=== PATIENT | male | born 1945 ===

== ENCOUNTER 2019-09-06 15:07 | Observation (INO) | payer MEDICARE, OTHER, SELFPAY ==
[2019-09-06] VITALS (11 sets, daily range): BP systolic 99–119; BP diastolic 52–69; PULSE 94–115; RESP 10–19; TEMP 36.3–36.4; O2SAT 94–99; BMI 29.9
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
--- NOTE | 2019-09-06 15:28 | XR_ITS ---
WS: [id number] Portable AP upright chest, 09/06/2019 Clinical Data: dyspnea Comparison: Portable chest, 07/09/2019. Findings: No nodules, masses or effusions are seen. The heart is normal. The pulmonary vascularity is not increased. No pneumonia or pneumothorax is seen. The diaphragms are flattened. The aortic arch a nd descending aorta show calcification and tortuosity. XR/XR chest 1V portable [id number] Impression: Atherosclerosis and hyperinflation.
[2019-09-06 15:44] LABS: ABG PCO2 36.1 mmHg (35-45); ABG PH Result 7.48 (7.35-7.45); Alveolar-Arterial Oxygen Gradi 16.4 mmHg (5-10); Arterial Blood Gas Hematocrit 37.6 % (42-52); Base Excess ABG 3.6 mmol/L (-2.0-2.0); Blood Gas Allen Test Pos; Blood Gas Sample Site Radial, left; Blood Gas Sample Type Arterial; Carboxyhemoglobin 1.9 %THgb (0.4-20.1); HGB O2 Sat 94.1 % (95-100); Ionized Calcium Level - ABG 1.1 mmol/L (1.1-1.4); Methemoglobin 0.7 % (0.4-1.5); Oxygen Device NC; Oxygen Saturation ABG 96.6; PO2 ABG 88.4 mmHg (80.0-100.0); Potassium Level - ABG 3.3 mmol/L (3.5-5.0); Total Hemoglobin 12.3 g/dL (14-18)
[2019-09-06 15:46] LABS: Basophils % 0.2 %; Eosinophils % 0.4 %; Hematocrit 38.7 % (42.0-52.0); Hemoglobin 12.4 g/dL (11.7-16.6); Lymphocytes # 0.7 10^3/uL (0.8-4.8); Lymphocytes % 13.4 %; Mean Corpuscular Hemoglobin 30.6 pg (28.0-34.0); Mean Corpuscular Volume 95.6 fL (80-94); Monocytes # 0.6 10^3/uL (0.2-0.9); Monocytes % 11.4 %; Neutrophils # 3.7 10^3/uL (1.8-7.7); Neutrophils % 74.4 %; Nucleated Red Blood Cells % 0 %; Platelet Count 225 10^3/cmm (130-400); Red Blood Count 4.05 10^6/uL (4.1-5.3); Red Cell Distribution Width 15.3 % (12.1-15.1)
[2019-09-06] MEDS: ipratropium-albuterol 3 mL Neb 6 ML INHALATION (15:51)
[2019-09-06 16:01] LABS: Anion Gap 17.9 (5-19); Blood Urea Nitrogen 16 mg/dL (8-23); Calcium 9.1 mg/Dl (8.8-10.2); Carbon Dioxide 28 mmol/L (22-29); Chloride 93 mmol/L (98-107); Glucose 120 mg/dL (74-106); Potassium 3.9 mmol/L (3.5-5.1); Sodium 135 mmol/L (136-145)
[2019-09-06] MEDS: LORazepam 2 mg/mL INJ 1 mL 1 MG IVP (16:58)
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
--- NOTE | 2019-09-06 21:56 | PC.NURSE ---
Patient requested food, checked with nurses and doctor on diet restrictions. okay on clear liquids. Jello and an orange icy were given.
[2019-09-06] MEDS: atorvastatin 40 mg Tablet 80 MG PO (23:43)
[2019-09-06] MEDS: ipratropium-albuterol 3 mL Neb INHALATION (23:44)
[2019-09-06] MEDS: finasteride 5 mg Tablet PO (23:44)
[2019-09-06] MEDS: metoprolol tartrate 25 mg Tablet PO (23:44)
[2019-09-06] MEDS: enoxaparin 40 mg/0.4 mL Syringe SUBCUT (23:45)
[2019-09-06 23:58] LABS: Glucose Point of Care 248 mg/dL (70-110)
[2019-09-07] VITALS (19 sets, daily range): BP systolic 82–111; BP diastolic 45–62; PULSE 74–107; RESP 14–27; TEMP 36.4; O2SAT 93–99
[2019-09-07] MEDS: HYDROcodone-acetaminophen 5-325 mg Tablet 1 TAB PO ×2 (01:19→08:08)
[2019-09-07] MEDS: ipratropium-albuterol 3 mL Neb INHALATION ×3 (03:17→08:15)
[2019-09-07 05:15] LABS: Basophils % 0.2 %; Hematocrit 34.2 % (42.0-52.0); Lymphocytes # 0.5 10^3/uL (0.8-4.8); Lymphocytes % 11.6 %; Mean Corpuscular HGB Conc 32.2 g/dL (30.0-36.0); Mean Corpuscular Hemoglobin 31.3 pg (28.0-34.0); Mean Corpuscular Volume 97.4 fL (80-94); Mean Platelet Volume 8.8 fL (7.4-10.4); Monocytes # 0.1 10^3/uL (0.2-0.9); Monocytes % 3.1 %; Neutrophils # 3.9 10^3/uL (1.8-7.7); Neutrophils % 84.9 %; Nucleated Red Blood Cells % 0 %; Platelet Count 216 10^3/cmm (130-400); Red Blood Count 3.51 10^6/uL (4.1-5.3); Red Cell Distribution Width 15.1 % (12.1-15.1); White Blood Count 4.6 10^3/uL (4.0-10.0)
[2019-09-07 05:35] LABS: Alanine Aminotransferase 14 U/L (0-41); Albumin Level 2.9 g/dL (3.5-5.2); Alkaline Phosphatase 181 IU/L (40-130); Anion Gap 16.6 (5-19); Aspartate Amino Transferase 23 U/L (0-40); Blood Urea Nitrogen 15 mg/dL (8-23); Calcium 8.9 mg/Dl (8.8-10.2); Carbon Dioxide 28 mmol/L (22-29); Chloride 92 mmol/L (98-107); Glucose 105 mg/dL (74-106); Potassium 3.6 mmol/L (3.5-5.1); Sodium 133 mmol/L (136-145); Total Bilirubin 0.3 mg/dL (0.15-1.2); Total Protein 5.9 g/dL (6.6-8.7)
[2019-09-07 06:54] LABS: Glucose Point of Care 148 mg/dL (70-110)
[2019-09-07] MEDS: pantoprazole DR 40 mg Tablet PO (08:08)
[2019-09-07] MEDS: folic acid 1 mg Tablet PO (08:09)
[2019-09-07] MEDS: FUROsemide 40 mg Tablet PO (08:09)
[2019-09-07] MEDS: multivitamin therapeutic Tablet 1 TAB PO (08:09)
[2019-09-07] MEDS: clopidogrel 75 mg Tablet PO (08:09)
[2019-09-07] MEDS: thiamine 100 mg Tablet PO (08:09)
[2019-09-07] MEDS: metoprolol tartrate 25 mg Tablet PO (08:09)
[2019-09-07] MEDS: tamsulosin 0.4 mg Capsule PO (08:09)
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
--- NOTE | 2019-09-07 11:36 | PC.NURSE ---
DISCHARGE HOME WITH PT FAMILY. REVIEWED NEW MEDICATION. NO MED CHANGES. WHEELED OUT TO PRIVATE VEHICLE, WISHED WELL
== END 2019-09-07 11:35 | disposition home or self-care (01) ==
LOC: ER 18:04 → ICU 20:33
PROVIDERS: Admitting Provider Internal Medicine; Emergency Provider Family Medicine; Family Provider Family Medicine; PCP Family Medicine; Visit Provider Internal Medicine
DX: T59.811A Toxic effect of smoke, accidental (unintentional), initial encounter (principal); J70.5 Respiratory conditions due to smoke inhalation; J44.1 Chronic obstructive pulmonary disease with (acute) exacerbation; Z99.81 Dependence on supplemental oxygen; I11.0 Hypertensive heart disease with heart failure; I50.32 Chronic diastolic (congestive) heart failure; Z95.5 Presence of coronary angioplasty implant and graft; I25.10 Atherosclerotic heart disease of native coronary artery without angina pectoris; F17.210 Nicotine dependence, cigarettes, uncomplicated; N40.0 Benign prostatic hyperplasia without lower urinary tract symptoms; Z87.11 Personal history of peptic ulcer disease; E78.5 Hyperlipidemia, unspecified; E11.9 Type 2 diabetes mellitus without complications; Z82.49 Family history of ischemic heart disease and other diseases of the circulatory system; T20.04XA Burn of unspecified degree of nose (septum), initial encounter; T20.06XA Burn of unspecified degree of forehead and cheek, initial encounter; Z79.02 Long term (current) use of antithrombotics/antiplatelets
CPT/HCPCS: 12345; 36415; 36416; 36600; 71045; 80048; 80051; 80053; 82810; 82962; 83986; 85025; 87070; 87077; 87186; 87205; 94640; 96372; 96374; 96375; 96376; 99282; 99285; G0378; J1650; J1815; J2060; J2930

== ENCOUNTER 2019-09-28 18:42 | Observation (INO) | payer MEDICARE, OTHER, SELFPAY ==
[2019-09-28 18:45] VITALS: BP 116/61; PULSE 101; RESP 18; TEMP 37.1; O2SAT 91; BMI 29.1
--- NOTE | 2019-09-28 19:00 | ED_ITS ---
Entered by Leonarda Yoo, acting as scribe for HPI - General Adult General: Chief complaint: General Medical Stated complaint: swelling Time Seen by Provider: 09/28/19 18:54 Source: patient Mode of arrival: ambulatory Limitations: no limitations History of Present Illness: HPI narrative: 74 yo m came to the er pov for not feeling well. Onset was today. Pt states that he has been sob and productive cough. Family states that pt has gained some water weight. Pt states that his legs are more swollen then usual. Pt wears o2 at home and is on 2 liters. MD complaint: not feeling well. Onset (ago): day(s) (today) Radiation: non-radiation Severity: mild Associated symptoms: Reports dyspnea; Deny chest pain, confusion, palpitations or vomiting Review of Systems General: Reports: other (negative unless marked) Const: Denies: fever or chills Card: Denies: chest pain or palpitations Resp: Reports: shortness of breath, productive cough, wheezing and change in phlegm color GI: Denies: abdominal pain, vomiting or vomiting blood : Denies: flank pain, difficulty urinating or painful urination Neuro: Reports: difficulty walking; Denies: confusion or slurred speech PFSH ED PFSH: Statuses (acute, chronic, etc) shown below reflect problem list status as previously entered and may not be historically accurate Medical History BPH (benign prostatic hyperplasia) (Acute) COPD (chronic obstructive pulmonary disease) (Resolved) Coronary artery disease (Acute) Diabetes mellitus type 2 in obese (Acute) Diastolic congestive heart failure (Acute) Hyperlipidemia (Acute) Hypertension (Acute) Lymphedema (Acute) Peptic ulcer disease (Acute) Tobacco dependency (Acute) Surgical History History of carpal tunnel surgery of left wrist (Acute) History of carpal tunnel surgery of right wrist (Acute) History of coronary angioplasty with insertion of stent (Acute) Family History Other CAD (coronary artery disease) Social History Smoking and tobacco status: current every day smoker Alcohol intake: current Alcohol intake frequency: 3 or more drinks per day Alcohol type: hard liquor Physical Exam Const: COMMON NORMALS: no apparent distress and oriented x3 GENERAL APPEARANCE: disheveled; not well kempt ORIENTATION/CONSCIOUSNESS: Yes awake, Yes oriented to person, Yes oriented to place and Yes oriented to time HENMT: COMMON NORMALS: oral mucous membranes not moist FACE & SINUS: normal facial exam MOUTH: moist mucous membranes abnormal TEETH & GINGIVA: Yes abnormal tooth and associated gingiva Eye: COMMON NORMALS: PERRL and EOMs intact bilaterally PUPIL: Yes PERRL Chest: CHEST: Yes symmetrical chest wall rise Resp: AUSCULTATION: rales on the left at the base and diminished lung sounds bilateral throughout Cardio: COMMON NORMALS: regular rate and regular rhythm RATE: regular rate and tachycardic RHYTHM: regular rhythm PERIPHERAL PULSES: radial pulses present GI: COMMON NORMALS: soft to palpation INSPECTION: Yes normal to inspection AUSCULTATION: Yes normoactive bowel sounds PALPATION: Yes soft and No tender Neuro: COMMON NORMALS: oriented x3 SENSORIUM/ORIENTATION: Yes oriented to person, Yes oriented to place and Yes oriented to time Psych: APPEARANCE: No well kempt Course Consultations: Consultation #1: dina Time: 22:30 Vital Signs: Vital signs: Vital Signs Temperature 98.4 F 09/29/19 00:37 Pulse Rate 114 H 09/29/19 00:37 Respiratory Rate 24 H 09/29/19 00:37 Blood Pressure 121/67 09/29/19 00:37 Pulse Oximetry 92 09/29/19 00:37 MDM - General Adult MDM Narrative: Medical decision making narrative: 74-year-old male presents with increasing shortness of breath, productive cough, and weight gain. He is received Lasix here with decent urinary output. DuoNeb treatment seemed to help his shortness of breath. He is received Solu-Medrol. He is persistently tachycardic from 1 10-1 40. This was not responsive to metoprolol. His troponin did not change at 2 hours. There are no ST changes on his EKG. Only some cues in the anterior leads. His BNP is not overly elevated will come in for hypoxic respiratory failure with COPD exacerbation. Lab Data: Labs: Lab Results 09/28/19 09/28/19 09/28/19 Range/Units 19:37 19:42 19:42 WBC 5.3 (4.0-10.0) 10^3/ uL RBC 3.87 L (4.1-5.3) 10^6/u L Hgb 11.7 (11.7-16.6) g/dL Hct 37.0 L (42.0-52.0) % MCV 95.6 H (80-94) fL MCH 30.2 (28.0-34.0) pg MCHC 31.6 (30.0-36.0) g/dL RDW 15.5 H (12.1-15.1) % Plt Count 291 (130-400) 10^3/c mm MPV 8.4 (7.4-10.4) fL Neut % (Auto) 64.8 % Lymph % (Auto) 23.5 % Mayes % (Auto) 7.7 % Eos % (Auto) 3.4 % Baso % (Auto) 0.4 % Neut # (Auto) 3.5 (1.8-7.7) 10^3/u L Lymph # (Auto) 1.3 (0.8-4.8) 10^3/u L Mayes # (Auto) 0.4 (0.2-0.9) 10^3/u L Eos # (Auto) 0.2 (0.0-0.8) 10^3/u L Baso # (Auto) 0.0 (0.0-0.1) 10^3/u L Nucleated RBC % (a uto) 0 % Nucleated RBCs # 0.0 /100WBC Sodium 142 (136-145) mmol/L Potassium 3.0 L (3.5-5.1) mmol/L Chloride 96 L (98-107) mmol/L Carbon Dioxide 30 H (22-29) mmol/L Anion Gap 19.0 (5-19) BUN 6 L (8-23) mg/dL Creatinine 0.5 L (0.7-1.2) mg/dL Glucose 122 H (65-115) mg/dL Calcium 8.5 (8.5-10.5) mg/dL Total Bilirubin 0.2 (0.15-1.2) mg/dL AST 42 H (0-40) U/L ALT 17 (0-41) U/L Alkaline Phosphata se 197 H (40-130) IU/L Troponin T Baselin e (0-15) ng/mL Troponin T 120 Min [place] (0-15) ng/mL Delta Troponin T (0-10) ABS# NT-Pro-B Natriuret Pep 416 H (0-125) pg/mL Total Protein 5.9 L (6.6-8.7) g/dL Albumin 3.1 L (3.5-5.2) g/dL Globulin 2.8 (1.3-4.6) g/dL Ethyl Alcohol (0-10) mg/dL Influenza Type A A g Negative (Negative) POC Influenza B Ag Negative (Negative) 09/28/19 09/28/19 09/28/19 Range/Units 19:42 19:45 21:40 WBC (4.0-10.0) 10^3/ uL RBC (4.1-5.3) 10^6/u L Hgb (11.7-16.6) g/dL Hct (42.0-52.0) % MCV (80-94) fL MCH (28.0-34.0) pg MCHC (30.0-36.0) g/dL RDW (12.1-15.1) % Plt Count (130-400) 10^3/c mm MPV (7.4-10.4) fL Neut % (Auto) % Lymph % (Auto) % Mayes % (Auto) % Eos % (Auto) % Baso % (Auto) % Neut # (Auto) (1.8-7.7) 10^3/u L Lymph # (Auto) (0.8-4.8) 10^3/u L Mayes # (Auto) (0.2-0.9) 10^3/u L Eos # (Auto) (0.0-0.8) 10^3/u L Baso # (Auto) (0.0-0.1) 10^3/u L Nucleated RBC % (a uto) % Nucleated RBCs # /100WBC Sodium (136-145) mmol/L Potassium (3.5-5.1) mmol/L Chloride (98-107) mmol/L Carbon Dioxide (22-29) mmol/L Anion Gap (5-19) BUN (8-23) mg/dL Creatinine (0.7-1.2) mg/dL Glucose (65-115) mg/dL Calcium (8.5-10.5) mg/dL Total Bilirubin (0.15-1.2) mg/dL AST (0-40) U/L ALT (0-41) U/L Alkaline Phosphata se (40-130) IU/L Troponin T Baselin e 80 H (0-15) ng/mL Troponin T 120 Min [place] 74.50 H (0-15) ng/mL Delta Troponin T -5.50 L (0-10) ABS# NT-Pro-B Natriuret Pep (0-125) pg/mL Total Protein (6.6-8.7) g/dL Albumin (3.5-5.2) g/dL Globulin (1.3-4.6) g/dL Ethyl Alcohol 84 H (0-10) mg/dL Influenza Type A A g (Negative) POC Influenza B Ag (Negative) Discharge Plan Discharge Patient Disposition: Admitted As Inpatient Admit Provider: Sarkis Melgar Discharge Date/Time: 09/29/19 00:15 Coding Level of Care Code ED Reactor Service Operator for Chg Fwd Exam Problem Focused The documentation recorded by the Fredo andrews Stephanie Lyn, accurately reflects the service I personally performed and the decisions made by Ken cordero Jeremy John, DO Sep 28, 2019 18:42
--- NOTE | 2019-09-28 19:05 | XR_ITS ---
WS: [id number] ONE VIEW CHEST HISTORY: 74 years old Male with sob AP upright chest comparison 09/06/2019 FINDINGS: Lung hyperexpansion. Slight increased left lower lung zone parenchymal opacity. No pneumothorax or pl eural effusion. Heart size and pulmonary vascular markings unremarkable. Thoracic aorta atheroscleros is. No subdiaphragmatic free air. Well-visualized osseous structures intact. Spine spondylosis. XR/XR chest 1V portable [id number] IMPRESSION: 1. Suspicious for mild left basilar atelectasis and/or pneumonia. Suggest short -term follow-up PA and lateral chest in 4-6 weeks. 2. Lung hyperexpansion with diaphragm flattening, correlate for chronic emphyse ma. 3. Atherosclerosis.
--- NOTE | 2019-09-28 19:06 | ECG_ITS ---
Measurements Intervals [place] Rate: 120 P: 71 ME: 153 QRS: 76 QRSD: 69 T: 48 QT: 311 QTc: 440 SINUS TACHYCARDIA LOW QRS VOLTAGE IN PRECORDIAL LEADS [QRS DEFLECTION < 1.0 mV IN CHEST LEADS] ANTEROSEPTAL MYOCARDIAL INFARCTION , PROBABLY OLD [40+ ms Q WAVE IN V1-V4] Compared to ECG 07/09/2019 15:37:48 No significant changes Electronically Signed On 09-29-2019 0:20:51 RAILROAD SHOP INSPECTOR by Karen South M.D. [email or web address]
[2019-09-28] MEDS: FUROsemide 10 mg/mL SDV 10mL 80 MG IVP (19:22)
[2019-09-28 19:42] VITALS: PULSE 93; RESP 20; O2SAT 95
[2019-09-28] MEDS: ipratropium-albuterol 3 mL Neb INHALATION (19:42)
[2019-09-28 19:48] VITALS: PULSE 92; RESP 22; O2SAT 93
[2019-09-28 19:51] LABS: Basophils % 0.4 %; Eosinophils # 0.2 10^3/uL (0.0-0.8); Eosinophils % 3.4 %; Hemoglobin 11.7 g/dL (11.7-16.6); Lymphocytes # 1.3 10^3/uL (0.8-4.8); Lymphocytes % 23.5 %; Mean Corpuscular HGB Conc 31.6 g/dL (30.0-36.0); Mean Corpuscular Hemoglobin 30.2 pg (28.0-34.0); Mean Corpuscular Volume 95.6 fL (80-94); Mean Platelet Volume 8.4 fL (7.4-10.4); Monocytes # 0.4 10^3/uL (0.2-0.9); Monocytes % 7.7 %; Neutrophils # 3.5 10^3/uL (1.8-7.7); Neutrophils % 64.8 %; Nucleated Red Blood Cells % 0 %; Platelet Count 291 10^3/cmm (130-400); Red Blood Count 3.87 10^6/uL (4.1-5.3); Red Cell Distribution Width 15.5 % (12.1-15.1); White Blood Count 5.3 10^3/uL (4.0-10.0)
[2019-09-28 20:03] LABS: Influenza A by IFA Negative (Negative); Influenza B by IFA Negative (Negative)
[2019-09-28 20:08] VITALS: BP 106/73; PULSE 110; RESP 22; O2SAT 92
[2019-09-28 20:09] LABS: Troponin(5th) Baseline 80 ng/mL (0-15)
[2019-09-28 20:18] LABS: Alanine Aminotransferase 17 U/L (0-41); Albumin Level 3.1 g/dL (3.5-5.2); Alkaline Phosphatase 197 IU/L (40-130); Aspartate Amino Transferase 42 U/L (0-40); Blood Urea Nitrogen 6 mg/dL (8-23); Calcium 8.5 mg/dL (8.5-10.5); Carbon Dioxide 30 mmol/L (22-29); Chloride 96 mmol/L (98-107); Creatinine Clr Calc Pharmacy 79.8552; Globulin 2.8 g/dL (1.3-4.6); Glucose 122 mg/dL (65-115); NT Pro B Type Natriuretic Pept 416 pg/mL (0-125); Sodium 142 mmol/L (136-145); Total Bilirubin 0.2 mg/dL (0.15-1.2); Total Protein 5.9 g/dL (6.6-8.7)
--- NOTE | 2019-09-28 20:46 | PC.NURSE ---
Family asking about plan of care, advised family still waiting on 2 hour troponin, spoke with Dr. Rogers and will wait for rest of labs
--- NOTE | 2019-09-28 21:06 | ECG_ITS ---
Measurements Intervals [place] Rate: 94 P: 80 DE: 156 QRS: 82 QRSD: 72 T: 58 QT: 346 QTc: 434 SINUS RHYTHM LOW QRS VOLTAGE IN PRECORDIAL LEADS [QRS DEFLECTION < 1.0 mV IN CHEST LEADS] ANTEROSEPTAL MYOCARDIAL INFARCTION , PROBABLY OLD [40+ ms Q WAVE IN V1-V4] Compared to ECG 07/09/2019 15:37:48 Sinus tachycardia no longer present Myocardial infarct finding still present Electronically Signed On 09-29-2019 0:22:49 PRESTRESSED CONCRETE LABORER by Karen South M.D. [email or web address]
[2019-09-28] MEDS: potassium chloride oral liq 20 mEq/15 mL UDC 60 MEQ PO (21:39)
[2019-09-28] MEDS: metoprolol tartrate 1 mg/1 mL SDV 5 mL 2.5 MG IV (22:06)
--- NOTE | 2019-09-28 22:43 | PC.NURSE ---
Assisted patient with changing his brief, and also brought in a bedside commode for him. Patient was in a lot of discomfort when i wiped his penitential and anal area. Patient requested some type of cream or ointment for relief. I informed the doctor of this and that his diarrhea was solid but very soft looking.
[2019-09-28] MEDS: LORazepam 2 mg/mL INJ 1 mL IVP (23:11)
[2019-09-28 23:21] VITALS: BP 121/77; PULSE 114; RESP 24; O2SAT 94
[2019-09-28 23:38] LABS: Alcohol Level 84 mg/dL (0-10)
[2019-09-29] VITALS (22 sets, daily range): BP systolic 91–130; BP diastolic 48–86; PULSE 80–114; RESP 15–26; TEMP 36.5–36.9; O2SAT 90–96
--- NOTE | 2019-09-29 00:02 | PC.NURSE ---
Called report to Natalie in [facility]
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
--- NOTE | 2019-09-29 00:37 | USCV_ITS ---
Janes Pruett Age: 74 Gender: M : 1945 Exam Date: 09/29/2019 07:46 Ordering Phys: Sarkis Melgar MD Technologist: Beti Mon Exam Location: [facility] – [place] Indication: DVT HISTORY: Lower extremity swelling. PROCEDURES: Comparison: . Grayscale and duplex color Doppler venous Ultrasound performed in bilateral lower extremities. The following venous structures were evaluated: common femoral vein, profunda vein, proximal portion of the greater saphenous vein, superficial femoral vein, and the popliteal vein. In addition, the posterior tibial and peroneal trunk were evaluated. Serial compression, augmentation maneuvers, and spectral Doppler flow evaluation were performed. FINDINGS: Examination was technically limited due to body habitus. Within the bilateral lower extremity deep venous system, including the common femoral, femoral, popliteal, posterior tibial and peroneal veins, appropriate anechoic, compressible lumens are noted. Duplex color Doppler evaluation shows spontaneous cepahalad flow with appropriate augmentation waveforms. The saphenofemoral junction is/are patent. No evidence of DVT seen in any vessel visualized at this time. Diffuse calf edema noted. Mid calf veins not well seen, bilaterally. CONCLUSIONS Bilateral calf mild edema and/or cellulitis. No evidence of bilateral lower extremity occlusive or obvious non occlusive DVT. Pop Green MD (Electronically Signed) Final Date: 29 September 2019 09:15 S
--- NOTE | 2019-09-29 00:43 | US_ITS ---
WS: [id number] ABDOMINAL ULTRASOUND HISTORY: 74 years old Male with renal lesion left kidney, liver lesion, cirrhosis COMPARISON: CT abdomen 07/09/2019 TECHNIQUE: Grayscale and Doppler ultrasound examination of the abdomen. FINDINGS: Pancreas: Obscured by shadowing bowel gas. Abdominal aorta and IVC: Included portions not dilated. Liver: Liver measures 18.7 cm in length. Mildly enlarged. Liver mildly echogenic. No intrahepatic oj e duct dilatation seen. Previously described lesion the left hepatic lobe is not seen on current exam . No hepatic bile duct dilatation seen. Gallbladder: Gallbladder wall thickness measures 2.6 mm. Gallbladder sludge. No stone, wall thickenin g, pericholecystic fluid, or hydrops. Left kidney: Left kidney measures 11.1 cm x 4.5 cm x 6.0 cm. Left kidney cortex measures 1.8 cm. Prev iously noted left kidney upper pole cyst without significant change measuring 1.7 cm. No solid or oth er cystic mass seen. No hydronephrosis or shadowing calculus. Right kidney: Right kidney measures 10.4 cm x 5.4 cm x 6.3 cm. Right kidney cortex measures 1.5 cm. R ight mid kidney exophytic cyst unchanged. No solid or additional cystic mass seen. No hydronephrosis or shadowing calculus identified. Spleen: Spleen measures 10.6 cm. Splenic calcified granulomas. No abdominal free fluid or fluid collection seen. US/US abdomen complete* [id number] IMPRESSION: 1. Nonvisualization of previous left hepatic lobe lesion. Consider follow-up CT abdomen liver protocol or MRI liver without and with contrast for further eval uation 2. Mild hepatomegaly and fatty liver versus diffuse hepatocellular disease. 3. Unchanged bilateral renal cysts. 4. Gallbladder sludge without evidence of stone or acute cholecystitis. 5. Splenic calcified glomus.
--- NOTE | 2019-09-29 01:06 | ECG_ITS ---
Measurements Intervals [place] Rate: 114 P: 71 DC: 137 QRS: 87 QRSD: 79 T: 68 QT: 330 QTc: 455 SINUS TACHYCARDIA LOW QRS VOLTAGE IN PRECORDIAL LEADS [QRS DEFLECTION < 1.0 mV IN CHEST LEADS] ABNORMAL RHYTHM ECG Compared to ECG 09/28/2019 21:46:18 Myocardial infarct finding no longer present Electronically Signed On 09-29-2019 22:24:56 DEPARTMENT HELPER by Karen South M.D. [email or web address]
[2019-09-29 01:21] LABS: Magnesium 1.3 mg/dL (1.7-2.3); Phosphorus 2.2 mg/dL (2.5-4.5)
[2019-09-29] MEDS: HYDROcodone-acetaminophen 5-325 mg Tablet 1 TAB PO ×2 (01:27→10:56)
--- NOTE | 2019-09-29 01:27 | PC.NURSE ---
Patient is sitting up in the bed, patient brought from the Emergency room via stretcher. Patient is alert and oriented to person, time, place, and situation, Hospital teaching provided regarding the room and notifying nursing for any needs. Full admission assessment completed per flow sheet. Patient has bilateral extremities, with hemosiderin staining, with small fissure areas, patient has pitting edema 4+ to bilateral extremities. Pedal pulses present, patient states, they only hurt if I leave them dangle from bed or chair in a sitting position Instructed patient that we need a urine specimen when he voids. Patient verbalizes understanding and states I had some [employer] at 0930 09/28/19 was the last time, drinking in the morning gets me going, but I think I been drinking too much Patient's resp even and non-labored, will continue to monitor patient. Call light within reach. Care continued.
[2019-09-29] MEDS: enoxaparin 40 mg/0.4 mL Syringe SUBCUT (01:28)
[2019-09-29] MEDS: doxycycline 100 mg Tablet PO (01:28)
[2019-09-29] MEDS: folic acid 1 MG, multivitamin inj 10 ML, thiamine 100 MG in sodium chloride 0.9% 1,000 ML 252.8 MG IV (01:28)
[2019-09-29 02:24] LABS: Add Urine Microscopic? NO
[2019-09-29 02:44] LABS: Bilirubin Urine Neg (NEGATIVE); Blood Urine Neg (Negative); Glucose Urine UA Norm (Normal); Ketones Urine Negative (Negative); Leukocyte Esterase Urine Negative (Negative); Nitrate Urine Negative (Negative); Protein Urine Neg (Negative); Specific Gravity, Urine 1.015 (1.005-1.030); Urine Appearance Clear (CLEAR); Urine Color Yellow (Yellow); Urobilinogen Urine Norm (Negative); pH Urine 5 (5-7)
[2019-09-29 02:55] LABS: Amphetamines Screen Urine Negative (Negative); Barbiturates Screen Urine Negative (Negative); Benzodiazepines Screen Urine Negative (Negative); Cocaine Screen Urine Negative (Negative); PCP Screen Urine Negative (Negative); THC Screen Urine Negative (Negative)
--- NOTE | 2019-09-29 04:39 | PC.NURSE ---
Patient ambulated 50 ft with walker in the hallway with nursing staff. patient tolerated well.
[2019-09-29] MEDS: ipratropium-albuterol 3 mL Neb INHALATION ×6 (04:42→23:54)
[2019-09-29 05:13] LABS: Basophils % 0.1 %; Hematocrit 38.5 % (42.0-52.0); Hemoglobin 12.5 g/dL (11.7-16.6); Lymphocytes # 0.6 10^3/uL (0.8-4.8); Mean Corpuscular HGB Conc 32.5 g/dL (30.0-36.0); Mean Corpuscular Hemoglobin 31.2 pg (28.0-34.0); Mean Platelet Volume 8.9 fL (7.4-10.4); Monocytes # 0.1 10^3/uL (0.2-0.9); Monocytes % 1.1 %; Neutrophils # 7.4 10^3/uL (1.8-7.7); Neutrophils % 91.6 %; Nucleated Red Blood Cells % 0 %; Platelet Count 304 10^3/cmm (130-400); Red Blood Count 4.01 10^6/uL (4.1-5.3); Red Cell Distribution Width 15.2 % (12.1-15.1)
[2019-09-29 05:38] LABS: Alanine Aminotransferase 16 U/L (0-41); Albumin Level 2.6 g/dL (3.5-5.2); Alkaline Phosphatase 183 IU/L (40-130); Anion Gap 19.9 (5-19); Aspartate Amino Transferase 39 U/L (0-40); Blood Urea Nitrogen 6 mg/dL (8-23); Calcium 8.4 mg/dL (8.5-10.5); Carbon Dioxide 28 mmol/L (22-29); Chloride 92 mmol/L (98-107); Creatinine Clr Calc Pharmacy 79.8552; Globulin 3.2 g/dL (1.3-4.6); Glucose 193 mg/dL (65-115); Potassium 3.9 mmol/L (3.5-5.1); Sodium 136 mmol/L (136-145); Total Bilirubin 0.5 mg/dL (0.15-1.2); Total Protein 5.8 g/dL (6.6-8.7)
[2019-09-29 05:39] LABS: Chol HDL Ratio 2.75 mg/dL (1.0-5.00); Cholesterol 157 mg/dL (0-200); HDL Cholesterol 57 mg/dL (60-100); LDL Cholesterol Calculated 83 mg/dL (50-129); LDL HDL Ratio 1.46 RATIO (0.00-3.22); Phosphorus 2.4 mg/dL (2.5-4.5); Triglycerides 84 mg/dL (0-150)
[2019-09-29 05:51] LABS: Estmated Average Glucose 140; Hemoglobin A1C 6.5 % (4.0-6.0)
[2019-09-29] MEDS: acetaminophen 325 mg Tablet 650 MG PO (06:15)
[2019-09-29 06:25] LABS: Glucose Point of Care 211 mg/dL (70-110)
--- NOTE | 2019-09-29 08:16 | USCV_ITS ---
Janes Pruett Age: 74 Gender: M : 1945 Exam Date: 09/29/2019 09:59 Ordering Phys: Roney Lyman MD Technologist: Antony Herron Exam Location: [facility] [place] Indication: HX OF CAD BP: 105 / 86 HR: 91 Rhythm: Sinus Technical Quality: Adequate MEASUREMENTS (Male / Female) Normal Values 2D ECHO LV Diastolic Diameter PLAX 3.9 cm 4.2 - 5.9 / 3.9 - 5.3 cm LV Systolic Diameter PLAX 2.7 cm IVS Diastolic Thickness 1.1 cm 0.6 - 1.0 / 0.6 - 0.9 cm IVS Systolic Thickness 1.7 cm LVPW Diastolic Thickness 1.2 cm 0.6 - 1.0 / 0.6 - 0.9 cm LVPW Systolic Thickness 1.4 cm LVOT Diameter 2.4 cm LV Ejection Fraction 2D Teich 59.8 % LV Ejection Fraction MOD 2C 70.0 % LV Ejection Fraction 2C AL 69.9 % LA Diameter 4.3 cm LA Width 3.9 cm LA Height 4.6 cm RA Width 4.1 cm RA Height 4.1 cm M-MODE LV Diastolic Diameter MM 4.8 cm 4.2 - 5.9 / 3.9 - 5.3 cm LV Systolic Diameter MM 2.8 cm LV Ejection Fraction MM Teich 73.4 % IVS Diastolic Thickness MM 0.9 cm 0.6 - 1.0 / 0.6 - 0.9 cm IVS Systolic Thickness MM 1.6 cm LVPW Diastolic Thickness MM 1.2 cm 0.6 - 1.0 / 0.6 - 0.9 cm LVPW Systolic Thickness MM 2.2 cm RV Diastolic Diameter MM 2.1 cm Aortic Annulus Diameter 3.2 cm LA Ao Ratio MM 1.4 MV E Point Septal Separation 0.7 cm DOPPLER AV Peak Velocity 110.0 cm/s LVOT Peak Velocity 85.0 cm/s AV Area Cont Eq vti 3.3 cm squared AV Area Cont Eq pk 3.4 cm squared MV Area PHT 5.0 cm squared Mitral E to A Ratio 0.9 MV E' Velocity 11.0 cm/s Mitral E to MV E' Ratio 8.1 Mitral E to LV E' Lateral Ratio 7.8 Mitral E to LV E' Septal Ratio 8.6 TR Peak Velocity 197.0 cm/s TR Peak Gradient 15.5 mmHg FINDINGS Left Ventricle Normal left ventricular cavity size. Normal left ventricular systolic function. No regional wall motion abnormalities. Left ventricular ejection fraction is estimated at 65 %. Grade I/IV diastolic dysfunction (abnormal relaxation filling pattern), normal to mildly elevated filling pressures. Right Ventricle The right ventricle is normal in size and function. RVSP could not be calculated due to incomplete tricuspid regurgitation velocity profile. Right Atrium The right atrium is normal in size. Left Atrium The left atrium is normal in size. Mitral Valve Structurally normal mitral valve without significant stenosis or prolapse. There is no mitral regurgitation. Aortic Valve Mild aortic valve calcification. No aortic valve stenosis. Trace aortic valve regurgitation. Tricuspid Valve Structurally normal tricuspid valve without significant stenosis or regurgitation. Pulmonary artery systolic pressure is normal. Pulmonic Valve Structurally normal pulmonic valve without significant stenosis. There is no pulmonic regurgitation. Pericardium Normal pericardium without effusion. Aorta Normal ascending aorta dimension. CONCLUSIONS 1-Normal left ventricular cavity size. Normal left ventricular systolic function. No regional wall motion abnormalities. Left ventricular ejection fraction is estimated at 65 %. Grade I/IV diastolic dysfunction (abnormal relaxation filling pattern), normal to mildly elevated filling pressures. 2-There is no pericardial effusion. 3-The right ventricle is normal in size and function. RVSP could not be calculated due to incomplete tricuspid regurgitation velocity profile. 4-No significant valve abnormalities. 5-Right atrial pressure is around 5 mm of mercury. 6-No significant change since the prior echocardiogram study of 09/19/2018. Karen South MD (Electronically Signed) Final Date: 29 September 2019 16:07 S
[2019-09-29] MEDS: tamsulosin 0.4 mg Capsule PO (08:34)
[2019-09-29] MEDS: finasteride 5 mg Tablet PO (08:35)
[2019-09-29] MEDS: multivitamin therapeutic Tablet 1 TAB PO (08:35)
[2019-09-29] MEDS: gabapentin 300 mg Capsule PO ×3 (08:35→21:04)
[2019-09-29] MEDS: atorvastatin 40 mg Tablet 80 MG PO (08:35)
[2019-09-29] MEDS: folic acid 1 mg Tablet PO (08:35)
[2019-09-29] MEDS: thiamine 100 mg Tablet PO (08:35)
[2019-09-29] MEDS: metoprolol tartrate 25 mg Tablet PO ×2 (08:35→17:34)
[2019-09-29] MEDS: pantoprazole DR 40 mg Tablet 20 MG PO (08:36)
[2019-09-29] MEDS: clopidogrel 75 mg Tablet PO (08:36)
[2019-09-29] MEDS: FUROsemide 10 mg/mL SDV 4mL 40 MG IVP (08:46)
[2019-09-29 11:14] LABS: Glucose Point of Care 199 mg/dL (70-110)
[2019-09-29 11:14] LABS: Glucose Point of Care 228 mg/dL (70-110)
[2019-09-29 11:40] LABS: D Dimer 2.03 ug/mIFEU (0-0.59)
[2019-09-29 12:23] LABS: Procalcitonin 0.19 ng/mL (0-0.5)
[2019-09-29 12:34] LABS: Iron 60 ug/dL (59-158); Percent Saturation 35.5 % (20-50); Total Iron Binding Capacity 169 mcg/dl; Unsaturated Iron Binding 109 ug/dL (112-347)
--- NOTE | 2019-09-29 14:17 | PC.CHAP ---
Pastoral Care Encounter/Spiritual Assessment Type of Contact [] Declined public affairs officer visit [] Patient/Family/Request visit [] Outpatient visit [] Follow-up visit [] Physician referral [] Code/Alert [x] Routine visit [] Staff referral [] Actively dying [] Patient sleeping [x] Family support [] [] Out of room [] Palliative care [] [] Receiving care in room [] Pre-surgical visit [] Trauma [] Long length of stay [] ICU visit [] Other: Relational/Emotional Strength [] Patient feels connected with others/family/visitors/staff [] Distress [] Loneliness/isolation [] Abandonment Spirituality of Patient [] Person of Hazel [] Attends Hindu of their Hazel [] Believes in Prayer [] Reads Bible or Moravian materials [] There are Spiritual issues to be addressed Microeconomics Professor Interventions [x] Prayer [] Active listening [] Non-anxious presence [] Spiritual/emotional support [] Crisis/trauma care [] Spiritual counseling [] Bereavement support [] Provided bereavement packet [] Provided Bible/devotional materials [] Provided toy/stuffed animal, coloring book to patient or family member [] Provided Communion [] Anointing/[place] [] Salvation [x Completed spiritual assessment [] Other: Impact on Illness or Injury [] Angry [] Fearful [] Anxious [] Often cries [] Exhaustion [] Unable to work [] Unable to attend temple [] Unable to walk/stand [] Unable to read [] Unable to drive [] Unable to eat/drink [] Unable to sleep [] Unable to be with family [] Patient intubated [] Other: Summary and children of Patient present. Patient accepted prayer as well did the entire family. As stated not a man of hazel, but would appreciate a prayer. Time spent with patient
[2019-09-29] MEDS: LORazepam 2 mg Tablet PO (14:31)
--- NOTE | 2019-09-29 15:40 | PC.RESP ---
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
[2019-09-29 16:51] LABS: Glucose Point of Care 242 mg/dL (70-110)
[2019-09-29 20:31] LABS: Glucose Point of Care 195 mg/dL (70-110)
[2019-09-30] VITALS (12 sets, daily range): BP systolic 91–108; BP diastolic 41–61; PULSE 78–105; RESP 18–22; TEMP 36.4–36.8; O2SAT 90–94
[2019-09-30] MEDS: HYDROcodone-acetaminophen 5-325 mg Tablet 1 TAB PO (00:27)
[2019-09-30] MEDS: enoxaparin 40 mg/0.4 mL Syringe SUBCUT (00:28)
[2019-09-30] MEDS: ipratropium-albuterol 3 mL Neb INHALATION ×3 (03:49→12:01)
[2019-09-30 05:42] LABS: Phosphorus 2.6 mg/dL (2.5-4.5)
[2019-09-30 06:20] LABS: Glucose Point of Care 198 mg/dL (70-110)
[2019-09-30] MEDS: tamsulosin 0.4 mg Capsule PO (08:37)
[2019-09-30] MEDS: gabapentin 300 mg Capsule PO (08:37)
[2019-09-30] MEDS: finasteride 5 mg Tablet PO (08:37)
[2019-09-30] MEDS: multivitamin therapeutic Tablet 1 TAB PO (08:37)
[2019-09-30] MEDS: folic acid 1 mg Tablet PO (08:37)
[2019-09-30] MEDS: metoprolol tartrate 25 mg Tablet PO (08:38)
[2019-09-30] MEDS: clopidogrel 75 mg Tablet PO (08:38)
[2019-09-30] MEDS: thiamine 100 mg Tablet PO (08:38)
[2019-09-30] MEDS: pantoprazole DR 40 mg Tablet 20 MG PO (08:38)
[2019-09-30] MEDS: atorvastatin 40 mg Tablet 80 MG PO (08:38)
[2019-09-30] MEDS: FUROsemide 10 mg/mL SDV 4mL 40 MG IVP (08:39)
--- NOTE | 2019-09-30 08:52 | PM.PN ---
Subjective Subjective: Interval history: Admitted overnight. H&P and labs noted. Doing well. States doing better and wants to go home. Medications: Medication Review Details: Albuterol inhaler Lipitor 80 mg once daily Protonix 80 mg once daily Plavix 75 mg once daily Tamsulosin 0.4 mg daily Finasteride 5 mg p.o. daily Lasix 40 mg p.o. daily Potassium chloride 10 mEq p.o. twice daily Gabapentin 300 mg p.o. 3 times daily Metoprolol 25 p.o. twice daily [place] 5/325 every 8 as needed Vitals/I&O/Wt Last Vital Signs Temp 97.5 F L 09/30/19 08:00 Pulse 93 09/30/19 08:00 Resp 19 H 09/30/19 08:00 BP 108/61 09/30/19 08:00 Pulse Ox 90 09/30/19 07:23 09/29/19 09/30/19 09/30/19 22:59 06:59 14:59 Intake Total 240 / 720 100 / 820 240 / 240 Balance 240 / 720 100 / 820 240 / 240 Weight last 48 hrs Weight 79.379 kg Physical Exam Narrative: EXAM NARRATIVE: General: No acute distress, AO x3 HEENT: PERRLA, pupils bilaterally equal and reactive Chest: Normal vesicular breath sounds, no added sounds, equal good air entry bilaterally CVS: S1-S2 regular, no murmurs, no tachycardia, no gallops, no rubs Abdomen: Soft, nontender, no organomegaly, bowel sounds present Neuro: No focal deficits, no facial deformity, AO x3, power 5/5 in all limbs, intentional tremors present EXt:B/l swelling present Data : 09/29/19 04:47 09/29/19 04:47 Micro: Microbiology 09/28/19 19:23 Gram Stain - Final Sputum - Expectorated Sputum Sputum Culture - Preliminary 09/28/19 19:48 Blood Culture - Preliminary Blood NEGATIVE TO DATE 09/28/19 19:42 Blood Culture - Preliminary Blood NEGATIVE TO DATE 09/29/19 09:35 Occult Blood (FIT) - Final Stool A&P Assessment and plan (1) Acute and chronic respiratory failure with hypoxia: -Secondary to COPD exacerbation Plan: -Solu-Medrol 40 mg every 8 hours -Doxycycline -DuoNeb -Oxygen therapy -Continue home Lasix Status: Acute Code(s): J96.21 - Acute and chronic respiratory failure with hypoxia (2) Alcohol withdrawal: -Last alcohol drink was at 9 AM -Likely patient sinus tachycardia, bilateral upper extremity tremors, tongue tremors, is related to alcohol withdrawal -Blood alcohol level 84 -[facility] protocol -Telemetry monitoring Status: Acute Code(s): F10.239 - Alcohol dependence with withdrawal, unspecified (3) Diastolic congestive heart failure: -Patient's echocardiogram on August 2018 showed left ventricular ejection fraction of 60%, grade 1 diastolic dysfunction -Patient does not seem clinically or fluid overloaded, Bnp is 416 -Did receive Lasix in the ER 80 -Change lasix to IV. -Monitor creatinine Status: Acute Code(s): I50.30 - Unspecified diastolic (congestive) heart failure (4) Edema of both upper extremities: -Interestingly patient has edema of bilateral upper extremities -No palpable bilateral axillary lymph nodes, no supraclavicular lymph nodes -CT angiogram on 07/09 of the chest showed Lungs: Severe emphysematous changes are noted. -CT of the abdomen on 07/10/2019 showed 1. Diffuse wall thickening of the colon and distal ileum. This moderate wall thickening is compatible with inflammation or infection. No abscess or free air. 2. 1 cm indeterminate hypodense lesion upper pole LEFT kidney. Ultrasound is recommended for further characterization. 3. Unchanged size of the indeterminate 18 mm lesion LEFT hepatic lobe with central hyper enhancement and peripheral hypoenhancement. Elective MRI may be helpful for further characterization. -Patient will likely require a work-up for possibly malignancy as outpatient -We will do a liver ultrasound, and a kidney ultrasound, Hemoccult Status: Acute Code(s): R60.9 - Edema, unspecified (5) Diabetes mellitus type 2 in obese: Low-dose sliding scale Status: Acute Code(s): E11.69 - Type 2 diabetes mellitus with other specified complication; E66.9 - Obesity, unspecified (6) Peptic ulcer disease: Status: Acute Code(s): K27.9 - Peptic ulcer, site unspecified, unspecified as acute or chronic, without hemorrhage or perforation (7) Hyperlipidemia: Status: Acute Code(s): E78.5 - Hyperlipidemia, unspecified (8) Coronary artery disease: Status post stenting x4, stress in 01/07/2018 was low probability of CAD No active chest pain Baseline troponin 80, 120 minutes 74.5, delta 5.5 EKG shows sinus tachycardia Likely type II NSTEMI from's supply demand ischemia Plan: -Continue to monitor troponins, serial EKGs, telemetry monitoring Status: Acute Code(s): I25.10 - Atherosclerotic heart disease of [place] coronary artery without angina pectoris (9) Lymphedema: -Bilateral lower extremity lymphedema -Patient states that today is a good day -Get lymphedema wraps -We will do bilateral extremity ultrasound to rule out DVT Status: Acute Code(s): I89.0 - Lymphedema, not elsewhere classified (10) Sinus tachycardia: -Heart rates as high as 140 -EKG has no significant ST-T wave changes -Troponins are elevated secondary type II NSTEMI from supply demand ischemia -Patient's alcohol level is 84, is withdrawing from alcohol -Likely sinus tachycardia is from alcohol withdrawal -If patient sinus tachycardia does not resolve, can consider CT angiogram to rule out pulmonary embolism, although patient had a negative CT [place] on 07/10/2019 Status: Acute Code(s): R00.0 - Tachycardia, unspecified Attestations Medical Necessity Statement*: Needs continued hospitalisation for for COPD exacerbation Time Spent in Patient Care: 16 - 35 minutes Coding Level of Care Code Acute Back Feeder [employer] Layup Line for [facility] Fwd Diagnoses Acute and chronic respiratory failure with hypoxia J96.21 Alcohol withdrawal F10.239 Diastolic congestive heart failure I50.30 Edema of both upper extremities R60.9 Diabetes mellitus type 2 in obese E11.69; E66.9 Peptic ulcer disease K27.9 Hyperlipidemia E78.5 Coronary artery disease I25.10 Lymphedema I89.0 Sinus tachycardia R00.0
[2019-09-30] MEDS: magnesium sulfate premix 4 GM/100 ML PREMIX IV (09:25)
[2019-09-30 11:32] LABS: Glucose Point of Care 173 mg/dL (70-110)
--- NOTE | 2019-09-30 11:39 | SUR.PREOP ---
Patient given information on Smoking Cessation and Pulmonary Rehab.
--- NOTE | 2019-09-30 12:24 | P.DS_ITS ---
Discharge Providers Date of Admission: 09/28/19 22:32 Date of Discharge: September 30, 2019 Attending Provider at Admission: Sarkis Melgar MD Attending Provider at Discharge: Ronnie Martini MD Primary Care Provider: Hany Manzanares MD Diagnoses at Discharge Discharge Diagnosis (1) Acute and chronic respiratory failure with hypoxia: Status: Acute Problem details: Improved (2) Alcohol withdrawal: Status: Acute Problem details: No significant withdrawal currently (3) Diastolic congestive heart failure: Status: Acute Problem details: Compensated currently (4) Edema of both upper extremities: Status: Acute Problem details: Improved (5) Diabetes mellitus type 2 in obese: Status: Acute Problem details: Stable (6) Peptic ulcer disease: Status: Acute Problem details: No complaints (7) Hyperlipidemia: Status: Acute (8) Coronary artery disease: Status: Acute (9) Lymphedema: Status: Acute (10) Sinus tachycardia: Status: Acute Reason for Visit Reason for Visit: Reason For Visit: acute copd exacerbation Hospital Course Hospital Course: Janes presented to the hospital at the direction of his home health nurse who reported his legs were more swollen than usual, and he was short of breath. Patient reported his breathing was about the baseline. He was admitted to the hospital and diagnosed with a COPD exacerbation, and acute diastolic heart failure. There was concern of alcohol withdrawal as well. He received IV diuresis, prednisone, doxycycline. By the end of this hospital stay he was much improved. Magnesium was still significantly low which I supplemented. Patient refused any further hospital stay, reporting he was going home. Son confirmed this. Discharge was arranged. He will need to follow-up as an outpatient for an abnormality on CT of abdomen demonstrating a 1 cm lesion left kidney, indeterminate as well as left hepatic lobe. Physical Exam Narrative: EXAM NARRATIVE: General exam no apparent distress Cardiovascular regular rate and rhythm without murmur Lungs clear Abdomen is soft with positive bowel sounds Extremities 1+ edema, diminished breath sounds bilaterally Discharge Data Data Completed and Pending: Completed Studies During Hospitalization Category Date Time Status XR chest 1V rojelio ble [id number] Urgent Exams 09/28/19 19:05 Completed CV echo complete* [id number] Routine Ultrasound 09/29/19 08:16 [place] [id number] Routin e Ultrasound 09/29/19 00:37 Completed US abdomen comple te* [id number] Routine Ultrasound 09/29/19 00:43 Completed Pending at discharge Category Date Time Status Blood Culture Sta t Lab 09/28/19 19:48 Results Magnesium AM LABS Lab 10/01/19 04:00 Ordered Phosphorus AM LAB S Lab 10/01/19 04:00 Ordered Sputum Culture an d Gram Stain Stat Lab 09/28/19 19:23 Results Labs from last 24 hours 09/30/19 09/30/19 09/30/19 10:54 06:04 04:27 POC Glucose 173 198 Phosphorus 2.6 Magnesium 1.0 L Iron TIBC % Saturation Unsat Iron Binding 09/29/19 09/29/19 09/29/19 20:25 16:49 04:47 POC Glucose 195 242 Phosphorus Magnesium Iron 60 TIBC 169 % Saturation 35.5 Unsat Iron Binding 109 L Vitals: Last Vital Signs Temp 98.0 F 09/30/19 10:53 Pulse 100 09/30/19 12:11 Resp 18 09/30/19 12:05 BP 98/52 09/30/19 10:53 Pulse Ox 94 09/30/19 12:05 Discharge Plan Discharge Patient Disposition: Home, Self-Care Condition: Stable Prescriptions: New thiamine mononitrate (vit B1) [Vitamin B-1 (mononitrate)] 100 mg Tablet 100 mg PO DAILY Qty: 30 RF: 0 doxycycline hyclate 100 mg capsule 100 mg PO BID 10 Days Qty: 20 RF: 0 prednisone 20 mg tablet 40 mg PO DAILY 5 Days Qty: 10 RF: 0 magnesium oxide 400 mg magnesium capsule 400 mg PO DAILY Qty: 30 RF: 0 Continued albuterol sulfate 90 mcg/actuation HFA aerosol inhaler 1 puff INHALATION QID RF: 0 atorvastatin [Lipitor] 80 mg tablet 80 mg PO DAILY RF: 0 pantoprazole 20 mg Tablet,Delayed Release (Dr/Ec) 20 mg PO DAILY RF: 0 Plavix 75 mg Tablet 75 mg PO DAILY RF: 0 tamsulosin 0.4 mg Capsule 0.4 mg PO DAILY RF: 0 finasteride 5 mg Tablet 5 mg PO DAILY RF: 0 Lasix 40 mg Tablet 40 mg PO DAILY RF: 0 potassium chloride 10 mEq Tablet Extended Release 10 meq PO BID RF: 0 gabapentin 300 mg Capsule 300 mg PO TID RF: 0 metoprolol tartrate 25 mg Tablet 25 mg PO BID RF: 0 Discontinued prednisone 20 mg tablet 40 mg PO DAILY Qty: 6 RF: 0 Discharge Orders: Discharge Order (Routine); Ordered 09/30/19 Ordered By: Ronnie Martini Referrals: Hany Manzanares MD [Primary Care Provider] - 4-7 days Discharge Diet: Cardiac and Diabetic Discharge Activity: Resume usual activity Activity Restrictions/Additional Instructions: Resume home oxygen at 3 L. Stop drinking. Take all medicine as prescribed. Discharge Attestations Time Spent in Discharge Care*: greater than 30 min Quality Metrics Clinical Quality Measures During this hospital stay, did patient experience: None Coding Level of Care Code Acute Roll On Worker for g Fwd Diagnoses Acute and chronic respiratory failure with hypoxia J96.21 Alcohol withdrawal F10.239 Diastolic congestive heart failure I50.30 Edema of both upper extremities R60.9 Diabetes mellitus type 2 in obese E11.69; E66.9 Peptic ulcer disease K27.9 Hyperlipidemia E78.5 Coronary artery disease I25.10 Lymphedema I89.0 Sinus tachycardia R00.0
--- NOTE | 2019-09-30 14:06 | PC.NURSE ---
patient discharged home at this time patient given discharge instructions given to patient and son. patient and son educated on s/s to be aware of and the stoplight system son and patient verbalized understanding. IV discontinued cath intact min bleeding noted. patient assisted to wheelchair and accompanied by staff to private vehicle
--- NOTE | 2019-10-07 06:24 | PC.SOCIAL ---
Reviewed micro results with Dr Martini. Per Dr Martini on 10/04/2019 nothing further needed.
== END 2019-09-30 14:05 | disposition home or self-care (01) ==
LOC: ER 19:34 → MEDSURG 22:54 → CSU 09-29 04:56
PROVIDERS: Student in an Organized Health Care Education/Training Program; Admitting Provider Family Medicine; Emergency Provider Emergency Medicine; Family Provider Family Medicine; PCP Family Medicine; Visit Provider Internal Medicine
DX: J96.21 Acute and chronic respiratory failure with hypoxia (principal); F10.239 Alcohol dependence with withdrawal, unspecified; Y90.4 Blood alcohol level of 80-99 mg/100 ml; M79.89 Other specified soft tissue disorders; E11.69 Type 2 diabetes mellitus with other specified complication; K27.9 Peptic ulcer, site unspecified, unspecified as acute or chronic, without hemorrhage or perforation; E78.5 Hyperlipidemia, unspecified; I11.0 Hypertensive heart disease with heart failure; I50.30 Unspecified diastolic (congestive) heart failure; I25.10 Atherosclerotic heart disease of native coronary artery without angina pectoris; I89.0 Lymphedema, not elsewhere classified; R00.0 Tachycardia, unspecified; Z79.02 Long term (current) use of antithrombotics/antiplatelets; Z79.891 Long term (current) use of opiate analgesic; N40.0 Benign prostatic hyperplasia without lower urinary tract symptoms; Z82.49 Family history of ischemic heart disease and other diseases of the circulatory system; F17.210 Nicotine dependence, cigarettes, uncomplicated
CPT/HCPCS: 12345; 36415; 36416; 71045; 76700; 80053; 80061; 80307; 81003; 82274; 82962; 83036; 83540; 83550; 83735; 83880; 84100; 84145; 84484; 85025; 85378; 87040; 87070; 87205; 87804; 93005; 93306; 93970; 94640; 96372; 96374; 96375; 97110; 97116; 97161; 97165; 97530; 99283; 99285; G0378; J1650; J1815; J1940; J2060; J2930; J3411; J3475; J3490; J7030

== ENCOUNTER 2021-05-18 09:15 | Inpatient (IN) | payer MEDICARE, SELFPAY ==
[2021-05-18] VITALS (56 sets, daily range): BP systolic 95–127; BP diastolic 33–66; PULSE 86–111; RESP 1–27; TEMP 36.8–37.4; O2SAT 93–99; BMI 33.3
--- NOTE | 2021-05-18 09:23 | ECG_ITS ---
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
--- NOTE | 2021-05-18 09:23 | XR_ITS ---
WS: [id number] Exam: XR chest 1V portable [id number] Date/Time of Exam: 05/18/2021 9:25 AM Reason For Exam: dyspnea/cough Comparison 09/28/2019. The lungs are hyperinflated. No consolidating infiltrates are seen. Plaque atelectasis in the lower l tod zones. Unremarkable cardiomediastinal silhouette. Ill-defined nodular infiltrate superimpose the bilateral lower lung zones and are most likely nipple shadows. Regional bony elements are intact. Sca ttered calcified granulomas. XR/XR chest 1V portable [id number] IMPRESSION: 1. Ill-defined nodular densities superimposing the bilateral lower lung zones w hich are most likely nipple shadows. Repeat exam with metallic nipple markers i n place could be performed for confirmation. 2. No acute infiltrates or pneumothorax. 3. Pulmonary hyperinflation which may indicate obstructive lung disease.
--- NOTE | 2021-05-18 09:24 | ED_ITS ---
HPI - Chest Pain General: Chief Complaint: Chest Pain Stated Complaint: CHEST PAIN Time Seen by Provider: 05/18/21 09:22 History of Present Illness: HPI narrative: 75-year-old male presents to the emergency room with complaint of chest pain that began at rest this morning. Patient is known history of coronary artery disease as well as diabetes diastolic congestive heart failure and COPD hypertension. He states about once or twice a week he has chest pain requiring him to take not sublingual nitroglycerin it was more intense today has been occurring little more often recently. He is pretty much completely pain-free at the time he arrives here. MD complaint: chest heaviness and chest discomfort Pertinent past history: coronary artery disease Onset (ago): hour(s) Timing of current episode: episodic Prior episodes: Yes Onset: during rest Pain location: left chest Pain radiation: left arm Severity: moderate Quality: tightness and heaviness Relieving factors: nothing Exacerbating factors: nothing Associated symptoms: Deny abdominal pain, diaphoresis, dyspnea, fever(s), leg edema, nausea, palpitations, sense of impending doom, syncope or vomiting Treatment prior to arrival: none Review of Systems Const: Denies: fever(s) or diaphoresis ENMT: Denies: throat pain, ear or mastoid pain, nasal discharge or nasal congestion Card: Denies: palpitations or syncope Resp: Denies: dyspnea GI: Denies: abdominal pain, nausea or vomiting : Denies: flank pain, dysuria, urinary frequency or urinary urgency Skin/Breast: Denies: rash or pruritus PFSH ED PFSH: Medical History (Updated 05/20/21 @ 08:33 by Kevan Lagos DO) BPH (benign prostatic hyperplasia) COPD (chronic obstructive pulmonary disease) Coronary artery disease Diabetes mellitus type 2 in obese Stable Diastolic congestive heart failure Compensated currently Hyperlipidemia Hypertension Lymphedema Peptic ulcer disease No complaints Tobacco dependency Surgical History History of carpal tunnel surgery of left wrist History of carpal tunnel surgery of right wrist History of coronary angioplasty with insertion of stent Family History Other CAD (coronary artery disease) Social History Smoking and tobacco status: current every day smoker Alcohol intake: current Alcohol intake frequency: 3 or more drinks per day A lcohol type: hard liquor Physical Exam Const: COMMON NORMALS: no acute distress GENERAL APPEARANCE: cooperative and comfortable ORIENTATION/CONSCIOUSNESS: Yes awake, Yes oriented to person, Yes oriented to place and Yes oriented to time HENMT: COMMON NORMALS: normocephalic, atraumatic and hearing grossly normal bilaterally HEAD & SCALP: normocephalic and atraumatic Neck/C-Spine: COMMON NORMALS: no JVD Resp: COMMON NORMALS: normal respiratory effort, No retractions, No use of accessory muscles and clear to auscultation bilaterally AUSCULTATION: clear to auscultation bilaterally Cardio: COMMON NORMALS: no JVD, regular rate, regular rhythm and No murmurs present (Cardio) RATE: regular rate RHYTHM: regular rhythm GI: COMMON NORMALS: Soft to palpation and No hepatosplenomegaly present AUSCULTATION: Yes normoactive bowel sounds PALPATION: Yes Soft to palpation, No Tenderness to palpation present (GI), No Guarding due to palpation present (GI) and Yes No hepatosplenomegaly present Extremity: COMMON NORMALS: normal to inspection, capillary refill normal, no clubbing, cyanosis or edema, no calf tenderness and no pedal edema Neuro: SENSORIUM/ORIENTATION: Yes oriented to person, Yes oriented to place and Yes oriented to time Skin: COMMON NORMALS: no rashes or lesions noted GENERAL SKIN EXAM: no rashes or lesions noted Course Vital Signs: Vital signs: Vital Signs Temperature 97.9 F 05/20/21 04:00 Pulse Rate 65 05/20/21 04:00 Respiratory Rate 16 05/20/21 04:00 Blood Pressure 95/56 05/20/21 04:00 Pulse Oximetry 99 05/20/21 04:00 MDM - Chest Pain MDM Narrative: Medical decision making narrative: Patient has obvious melenic stools on rectal exam. His hemoglobin has dropped precipitously. He is on Plavix because of his prior stenting and additionally is having chest pain. EKG and troponins do not show significant abnormality he will need to be monitored over worsening anemia. Discussed with Dr. Sandhu as well as Dr. Patricio from surgery and patient admitted orders are written. Lab Data: Labs: Lab Results 05/18/21 05/18/21 05/18/21 09:10 09:10 09:10 WBC 10.6 10^3/uL H 10 ^3/uL (4.0-10.0) RBC 2.42 10^6/uL L 10 ^6/uL (4.1-5.3) Hgb 7.8 g/dL L g/dL (11.7-16.6) Hct 24.6 % L % (42.0-52.0) MCV 101.7 fl H fl (80-94) MCH 32.2 pg pg (28.0-34.0) MCHC 31.7 g/dL g/dL (30.0-36.0) RDW 15.1 % % (12.1-15.1) Plt Count 297 10^3/cmm 10^3 /cmm (130-400) MPV 9.5 fL fL (7.4-10.4) Neut % (Auto) 78.8 % % Lymph % (Auto) 12.4 % % [place] % (Auto) 7.0 % % Eos % (Auto) 0.8 % % Baso % (Auto) 0.3 % % Neut # (Auto) 8.37 10^3/uL H 10 ^3/uL (1.8-7.7) Lymph # (Auto) 1.3 10^3/uL 10^3/ uL (0.8-4.8) [place] # (Auto) 0.7 10^3/uL 10^3/ uL (0.2-0.9) Eos # (Auto) 0.1 10^3/uL 10^3/ uL (0.0-0.8) Baso # (Auto) 0.0 10^3/uL 10^3/ uL (0.0-0.1) Nucleated RBC % (a uto) 0.2 % % Nucleated RBCs # 0.0 /100WBC /100W BC Sodium 135 mmol/L L mmol /L (136-145) Potassium 4.9 mmol/L mmol/L (3.5-5.1) Chloride 96 mmol/L L mmol/ L (98-107) Carbon Dioxide 28 mmol/L mmol/L (22-29) Anion Gap 15.9 (5-19) BUN 26 mg/dL H mg/dL (8-23) Creatinine 0.7 mg/dL mg/dL (0.7-1.2) GFR Calculation Not Reportable Glucose 194 mg/dL H mg/dL (65-115) Calculated Osmolal ity 290 mOsm/kg mOsm/ kg (285-295) Calcium 8.3 mg/dL L mg/dL (8.5-10.5) Total Bilirubin 0.2 mg/dL mg/dL (0.15-1.2) AST 11 U/L U/L (0-40) ALT 8 U/L U/L (0-41) Alkaline Phosphata se 87 IU/L IU/L (40-130) Troponin T Baselin e 91 ng/L H ng/L (0-15) Troponin T 120 Min [place] Troponin T Total Protein 4.9 g/dL L g/dL (6.6-8.7) Albumin 3.3 g/dL L g/dL (3.5-5.2) Globulin 1.6 g/dL g/dL (1.3-4.6) Blood Type Rho(D) Type Antibody Screen Crossmatch 05/18/21 05/18/21 10:05 11:10 WBC RBC Hgb Hct MCV MCH MCHC RDW Plt Count MPV Neut % (Auto) Lymph % (Auto) [place] % (Auto) Eos % (Auto) Baso % (Auto) Neut # (Auto) Lymph # (Auto) [place] # (Auto) Eos # (Auto) Baso # (Auto) Nucleated RBC % (a uto) Nucleated RBCs # Sodium Potassium Chloride Carbon Dioxide Anion Gap BUN Creatinine GFR Calculation Glucose Calculated Osmolal ity Calcium Total Bilirubin AST ALT Alkaline Phosphata se Troponin T Baselin e Troponin T 120 Min [place] 71.94 ng/L H ng/L (0-15) Delta Troponin T -19.06 ABS# L ABS # (0-10) Total Protein Albumin Globulin Blood Type O Positive Rho(D) Type Positive Antibody Screen Negative Crossmatch See Detail Discharge Plan Discharge Patient Disposition: Admitted As Inpatient Admit Provider: Carlin Caldwell Clinical Impression: GI bleed, Anemia, Chest pain, Coronary artery disease, Diabetes mellitus type 2 in obese Condition: Stable Coding Level of Care Code ED Die Casting Machine Maintainer for Miguel Barrera
[2021-05-18 09:33] LABS: Basophils % 0.3 %; Eosinophils # 0.1 10^3/uL (0.0-0.8); Eosinophils % 0.8 %; Hematocrit 24.6 % (42.0-52.0); Hemoglobin 7.8 g/dL (11.7-16.6); Lymphocytes # 1.3 10^3/uL (0.8-4.8); Lymphocytes % 12.4 %; Mean Corpuscular HGB Conc 31.7 g/dL (30.0-36.0); Mean Corpuscular Hemoglobin 32.2 pg (28.0-34.0); Mean Corpuscular Volume 101.7 fl (80-94); Mean Platelet Volume 9.5 fL (7.4-10.4); Monocytes # 0.7 10^3/uL (0.2-0.9); Neutrophils # 8.37 10^3/uL (1.8-7.7); Neutrophils % 78.8 %; Nucleated Red Blood Cells % 0.2 %; Platelet Count 297 10^3/cmm (130-400); Red Blood Count 2.42 10^6/uL (4.1-5.3); Red Cell Distribution Width 15.1 % (12.1-15.1); White Blood Count 10.6 10^3/uL (4.0-10.0)
[2021-05-18 09:56] LABS: Alanine Aminotransferase 8 U/L (0-41); Albumin Level 3.3 g/dL (3.5-5.2); Alkaline Phosphatase 87 IU/L (40-130); Anion Gap 15.9 (5-19); Aspartate Amino Transferase 11 U/L (0-40); Blood Urea Nitrogen 26 mg/dL (8-23); Calcium 8.3 mg/dL (8.5-10.5); Carbon Dioxide 28 mmol/L (22-29); Chloride 96 mmol/L (98-107); Globulin 1.6 g/dL (1.3-4.6); Glucose 194 mg/dL (65-115); Osmolality Calculated 290 mOsm/kg (285-295); Potassium 4.9 mmol/L (3.5-5.1); Sodium 135 mmol/L (136-145); Total Bilirubin 0.2 mg/dL (0.15-1.2); Total Protein 4.9 g/dL (6.6-8.7)
[2021-05-18 09:57] LABS: Troponin(5th) Baseline 91 ng/L (0-15)
--- NOTE | 2021-05-18 10:42 | PC.PHAR ---
PT STATES HIS TAKES CARE OF HIS MEDICATIONS-PTS RODRIGO STATES THE PT TAKES LASIX 80MG QAM AND 40MG AT NOON-EXT MED HISTORY SHOWS LASIX 80MG BID LAST FILLED ON 04/23/21 90D/S-RX FILLED ON 04/28/21 7D/S FOR PERCOCET 10-325MG 1 TO 2 TABS PO Q6H PRN PTS STATES THEY HAVE 3 TABS LEFT STATES THE NURSE TOLD THEM THE PT WAS ONLY SUPPOSE TO BE TAKING ONE TAB DAILY-PTS STATES THE PT TAKES METFORMIN 250MG PO QAM EXT MED HISTORY SHOWS LAST FILLED FOR 500MG PO DAILY ON 05/13/21 90D/S-NOTES ARE MADE IN THE PHARMACY COMMENTS
--- NOTE | 2021-05-18 11:23 | ECG_ITS ---
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
[2021-05-18 11:42] LABS: Troponin 5 2HR 71.94 ng/L (0-15)
[2021-05-18 11:46] LABS: Troponin 5 2HR Delta -19.06 ABS# (0-10)
--- NOTE | 2021-05-18 13:50 | CT_ITS ---
WS: [id number] CT ABDOMEN AND PELVIS WITH CONTRAST HISTORY: Diarrhea for 2 days. TECHNIQUE: Imaging performed of the abdomen and pelvis with IV contrast. Single phase imaging of the abdomen. Coronal and sagittal reformats are submitted. All CT scans at [facility] use at [address] one of these dose optimization techniques: automated exposure control; mA and/or kV adjustment per patient size (includes targeted exams where dose is matched to clinical indication); or iterative re construction. IV CONTRAST: Omnipaque 300; 95 mL IV. Oral contrast: No DLP: 1570.46 mGy.cm COMPARISON: 07/09/2019 Lower thorax: Lung bases are clear. Heart is normal size. No hiatal hernia. Liver/biliary system: Normal size liver. Hepatic steatosis along the falciform ligament. There is irvin y mild central bile duct dilatation. Common bile duct is mildly dilated measuring up to 8 mm. No ston e distally. Gallbladder: Gallbladder is elongated but no wall thickening. Variable density within the posterior g allbladder probably representing stones or sludge. Pancreas: Atrophied pancreas. No mass. Spleen: Normal size spleen with granulomata. Adrenal glands: Normal. Right kidney: Normal size kidney. Largest cyst within the kidney measures 3.3 cm maximum diameter. No obstruction. Left kidney: Normal size kidney with the cyst in the upper pole with a maximum diameter 1.4 cm. No ob struction. Aorta: Mild atherosclerosis with no aneurysm. Lymphadenopathy: There are small mesenteric lymph nodes which were present on the prior study with no progression. No retroperitoneal adenopathy. Free fluid: None. GI tract: Appendix is normal. No GI tract obstruction. No wall thickening or pericolonic edema. There is a short segment area of stricture in the sigmoid region measuring 4.4 cm which needs further eval uation. Abdominal wall: Unremarkable abdominal wall. No hernia. Pelvis: Normally distended urinary bladder. Prostate gland is very slightly enlarged encroaching into the urinary bladder. Bones: Increase in the lumbar lordosis. 3 mm anterolisthesis of L5 and bilateral pars defects at L5. CT/CT abdomen pelvis w con* [id number] IMPRESSION: 1. Short segment stricture measuring 4.4 cm in the sigmoid colon. Not causing a significant obstruction. This may be neoplastic or postinflammatory stricture or peristalsis. Recommend follow-up colonoscopy. 2. Very mild dilatation of the central bile ducts and common bile duct which m ay be physiologic and related to aging. 3. Sludge or small stones within the gallbladder lumen. No gallbladder wall th ickening or edema. Sludge was previously reported on a prior ultrasound 0.
[2021-05-18] MEDS: iohexol 300 mg/mL 100 mL Btl IV (14:14)
--- NOTE | 2021-05-18 15:23 | ECG_ITS ---
[facility] Test Date: 2021-05-18 Pat Name: Janes Pruett Department: Room: Gender: Male Plasterer Rough: : 1945 Requested By: Kevan Clemente Order Number: [id number] Reading MD: YUDY CORBIN Measurements Intervals [place] Rate: 100 P: 53 [place]: 124 QRS: 52 QRSD: 86 T: 55 QT: 330 QTc: 427 Interpretive Statements SINUS TACHYCARDIA ABNORMAL RHYTHM ECG Compared to ECG 05/18/2021 09:33:33 No significant changes Electronically Signed On 05-18-2021 20:03:37 CDT by YUDY CORBIN [id number]
[2021-05-18 15:49] LABS: Troponin 5 6HR 77.95 ng/L (0-15)
[2021-05-18 15:53] LABS: Troponin 5 6HR Delta -13.05 ng/L (0-12)
--- NOTE | 2021-05-18 18:35 | PM.HP ---
Providers/Chief Complaint Admitting Physician: Carlin Caldwell Primary Care Provider: Hany Manzanares MD Chief Complaint: CHEST PAIN History of Present Illness 75-year-old gentleman with history of CAD, status post stenting, chronically on aspirin, Plavix, although says last stent was about 8 years ago, COPD, DM2, HTN, HLD, BPH, PVD, chronic lymphedema but also reported CHF, current smoker has experienced on and off chest discomfort radiating from the left side of his chest to the right, aching, pain, starting about a week earlier, gradually intensifying, not responding to nitroglycerin, although he states his tablets are very old, and is not sure if he may be . At the same time for the last several days he is also experienced melanotic stools. He has history of PUD in the past identified by EGD. He states that he continues taking aspirin 81 mg daily, as well as Plavix. Denies missing any doses other than this morning. He does not see a game agent. He follows with his primary provider. He denies NSAID use. Review of Systems Const: Denies: fever(s), chills, body aches or malaise Eyes: Denies: change in vision or eye redness ENMT: Denies: throat pain, oral sores or ear or mastoid pain Card: Reports: chest pain, edema (chronic) and orthopnea (chronic); Denies: pre-syncope or dyspnea on exertion Resp: Denies: dyspnea, productive cough, change in phlegm color or hemoptysis GI: Reports: melena; Denies: abdominal pain, nausea, vomiting, diarrhea, constipation or hematochezia : Denies: flank pain, difficulty urinating, urinary frequency or hematuria Musc: Denies: back pain, joint swelling or joint redness Skin/Breast: Denies: rash, sores or new lesions Neuro: Denies: headache(s), numbness in extremities, weakness in extremities, dizziness, confusion or seizure-like activity Endo: Denies: polyuria or polydipsia Primo/Lymph: Denies: easy bleeding or purpura All/Imm: Denies: urticaria, throat swelling or tongue swelling Medications/Allergies Home Medications Medication Instructions Recorded Confirmed Last Taken Type albuterol sulfate 2 puff INHALATION QID PRN 09/07/19 05/18/21 Unknown History atorvastatin [Lipitor] 80 mg PO QAM 09/07/19 05/18/21 05/17/21 History clopidogrel [Plavix] 75 mg PO QAM 09/07/19 05/18/21 05/17/21 History finasteride 5 mg PO QAM 09/07/19 05/18/21 05/17/21 History furosemide [Lasix] 40 mg PO DAILY@12 09/07/19 05/18/21 05/17/21 History gabapentin 300 mg PO TID 09/07/19 05/18/21 05/17/21 History metoprolol tartrate 25 mg PO BID 09/07/19 05/18/21 05/17/21 History pantoprazole 20 mg PO QAM 09/07/19 05/18/21 05/17/21 History potassium chloride 20 meq PO TID 09/07/19 05/18/21 05/17/21 History tamsulosin 0.4 mg PO QAM 09/07/19 05/18/21 05/17/21 History acetaminophen [Tylenol Ex Str 1,000 mg PO Q4H PRN 05/18/21 05/18/21 Unknown History Rapid Release] albuterol sulfate 2.5 mg INHALATION QID PRN 05/18/21 05/18/21 Unknown History docusate sodium [Stool Softener] 600 mg PO BID@,05/18/21 05/18/21 05/17/21 History furosemide [Lasix] 80 mg PO QAM 05/18/21 05/18/21 05/18/21 History magnesium 500 mg PO QAM 05/18/21 05/18/21 Unknown History metformin 250 mg PO QAM 05/18/21 05/18/21 05/17/21 History morphine 30 mg PO DAILY 05/18/21 05/18/21 05/18/21 05:00 History oxycodone-acetaminophen 1 tab PO DAILY PRN 05/18/21 05/18/21 Unknown History saw palmetto 900 mg PO TID 05/18/21 05/18/21 05/17/21 History tizanidine 2 mg PO BID 05/18/21 05/18/21 05/17/21 History Allergies Allergy/AdvReac Type Severity Reaction Status Date / Time No Known Allergies Allergy Verified 05/18/21 10:42 PFSH Acute PFSH: Medical History (Updated 05/18/21 @ 18:40 by Carlin Caldwell MD) BPH (benign prostatic hyperplasia) COPD (chronic obstructive pulmonary disease) Coronary artery disease Diabetes mellitus type 2 in obese Stable Diastolic congestive heart failure Compensated currently Hyperlipidemia Hypertension Lymphedema Peptic ulcer disease No complaints Tobacco dependency Surgical History History of carpal tunnel surgery of left wrist History of carpal tunnel surgery of right wrist History of coronary angioplasty with insertion of stent Family History Other CAD (coronary artery disease) Social History Smoking and tobacco status: current every day smoker Alcohol intake: current Alcohol intake frequency: 3 or more drinks per day Alcohol type: hard liquor Vitals/I&O/Wt Last Vital Signs Temp 98.3 F 05/18/21 16:44 Pulse 90 05/18/21 16:44 Resp 18 05/18/21 16:44 BP 124/66 05/18/21 16:44 Pulse Ox 98 05/18/21 16:44 05/18/21 05/18/21 05/18/21 06:59 14:59 22:59 Intake Total 0 / 0 350 / 350 Balance 0 / 0 350 / 350 Weight last 48 hrs Weight 90.718 kg Weight 90.718 kg Physical Exam Const: COMMON NORMALS: no acute distress and patient oriented x3 HENMT: COMMON NORMALS: oropharynx normal Neck/C-Spine: COMMON NORMALS: no JVD Resp: COMMON NORMALS: normal respiratory effort and clear to auscultation bilaterally AUSCULTATION: clear to auscultation bilaterally Cardio: COMMON NORMALS: no JVD, regular rhythm, S1 normal heart sound present, S2 normal heart sound present and No murmurs present (Cardio) RHYTHM: regular rhythm HEART SOUNDS: S1 normal heart sound present and S2 normal heart sound present GI: COMMON NORMALS: Normal to inspection, nondistended, normoactive bowel sounds present, Soft to palpation and non-tender PALPATION: Yes Soft to palpation Extremity: COMMON NORMALS: no joint enlargement and no pedal edema Neuro: COMMON NORMALS: patient oriented x3 and moves all extremities Skin: COMMON NORMALS: no rashes or lesions noted GENERAL SKIN EXAM: no rashes or lesions noted Data : 05/18/21 09:10 05/18/21 09:10 A&P Assessment and plan (1) GIB (gastrointestinal bleeding): Patient symptomatic anemia with underlying coronary disease, possible recent ischemia. Hemoglobin 7.8. Receiving PRBC transfusion. Reassess hemoglobin this evening. Given possible recent myocardial event we will target her hemoglobin of 10. Hold aspirin. If possible continue Plavix. Discussed with him the concern for possible recent myocardial event with decreasing troponin, episodes of chest pain recently with history of CAD, stent in the past. Discussed elevated risk of procedure currently given the above, with elevated risk of cardiovascular complication, however, at the same time given acute symptomatic anemia, blood loss, GI bleed, he wants to pursue additional dilution to identify source of bleed to see if this may be treated as he will need long-term antiplatelet, as well as additional cardiac evaluation due to episodes of chest pain. PPI twice daily. Recheck hemoglobin. Transfuse additionally if hemoglobin less than 10. Status: Acute (2) Chest pain: Discussed with him concern of possible recent myocardial event given decreasing troponin level. No suggestion of STEMI. Possible recent NSTEMI. Complete troponin EKG series. Assess TTE. Will reassess hemoglobin and continue Plavix if possible. Hold aspirin. Status: Acute (3) Coronary artery disease: History of CAD with stenting in the past. Reassess hemoglobin continue Plavix if possible. Hold statin. If unable to continue either antiplatelet medication stop. Continue statin, beta-pedro luis. Monitor blood pressures Status: Acute (4) Peptic ulcer disease: Status: Acute (5) Alcohol abuse: Drinks about half a pint of alcohol a night. Encouraged cessation due to risk of worsening gastritis, GI bleeding. Discussed also risk of cirrhosis. She verbalized understanding. Discussed also risk of hypertension and other complications. We will add vitamins. Monitor for withdrawal. Status: Acute Additional A&P Information Nocturnal hypoxia: uses night-time O2. BPH: Continue BPH meds. Monitor blood pressures. Chronic lower extremity lymphedema COPD: Continue inhalers DM2 HTN HLD Smoking addiction: Discussed smoking cessation for 5 minutes. He states is not ready to quit at this time. He has had very difficult time trying to quit in the past. He understands the risks of progression of CAD, risk of AL, as well as risk of various cancers and progression of lung disease. Nicotine supplements as needed. Attestations Medical Necessity Statement*: Admission of over 2 midnights ago admitted for assessment of management of GI bleed, episodes of chest pain and gentleman with known CAD, prior stenting. Coding Level of Care Code Acute Plant Maintenance Supervisor for [facility] Francoise Diagnoses GIB (gastrointestinal bleeding) K92.2 Chest pain R07.9 Coronary artery disease I25.10 Peptic ulcer disease K27.9 Alcohol abuse F10.10
--- NOTE | 2021-05-18 19:39 | PM.CONSULT ---
Providers/Reason For Consult Consulting Physician/Specialty*: Osiel Lowe, - General Surgery- [facility] Reason for Consult*: GI bleed Attending Physician: Carlin Caldwell Primary Care Provider: Hany Manzanares MD History of Present Illness History of Present Illness Janes Pruett is a 75 year old male with multiple medical problems who presents with 2 to 3-day history of combination of dark tarry stools and some stools with more of a bloody red color to them. Patient does have a history of peptic ulcer disease in the past. Of note, patient continues to drink and smoke and does not take antiacid medication at home. He notes that he went for colonoscopy approximately 10 to 12 years ago that was clear at that point. He denies a history of recent unexplained weight loss, abdominal pain, or change in the caliber of his stools. He denies a family history of colon cancer. Of note he is anemic on presentation with a hemoglobin of 7.8. He is undergoing transfusion at this time and we will see what his repeat hemoglobin is. He denies any of the symptoms he had with his prior ulcer. He presented with chest pain this admission as well. He notes shortness of breath and was prescribed oxygen therapy at home that he does not use frequently. He has foot pain as well most likely related to his diabetes. His sugars are not well controlled at home either. He takes aspirin and Plavix related to a prior stent placed although he does not see his boom tender on a regular basis. Review of Systems General: Reports: 10 or more systems reviewed and unremarkable except in HPI and below Meds/Allergies Home Medications and Allergies Home Medications Medication Instructions Recorded Confirmed Last Taken Type albuterol sulfate 2 puff INHALATION QID PRN 09/07/19 05/18/21 Unknown History atorvastatin [Lipitor] 80 mg PO QAM 09/07/19 05/18/21 05/17/21 History clopidogrel [Plavix] 75 mg PO QAM 09/07/19 05/18/21 05/17/21 History finasteride 5 mg PO QAM 09/07/19 05/18/21 05/17/21 History furosemide [Lasix] 40 mg PO DAILY@12 09/07/19 05/18/21 05/17/21 History gabapentin 300 mg PO TID 09/07/19 05/18/21 05/17/21 History metoprolol tartrate 25 mg PO BID 09/07/19 05/18/21 05/17/21 History pantoprazole 20 mg PO QAM 09/07/19 05/18/21 05/17/21 History potassium chloride 20 meq PO TID 09/07/19 05/18/21 05/17/21 History tamsulosin 0.4 mg PO QAM 09/07/19 05/18/21 05/17/21 History acetaminophen [Tylenol Ex Str 1,000 mg PO Q4H PRN 05/18/21 05/18/21 Unknown History Rapid Release] albuterol sulfate 2.5 mg INHALATION QID PRN 05/18/21 05/18/21 Unknown History docusate sodium [Stool Softener] 600 mg PO BID@,05/18/21 05/18/21 05/17/21 History furosemide [Lasix] 80 mg PO QAM 05/18/21 05/18/21 05/18/21 History magnesium 500 mg PO QAM 05/18/21 05/18/21 Unknown History metformin 250 mg PO QAM 05/18/21 05/18/21 05/17/21 History morphine 30 mg PO DAILY 05/18/21 05/18/21 05/18/21 05:00 History oxycodone-acetaminophen 1 tab PO DAILY PRN 05/18/21 05/18/21 Unknown History saw palmetto 900 mg PO TID 05/18/21 05/18/21 05/17/21 History tizanidine 2 mg PO BID 05/18/21 05/18/21 05/17/21 History Allergies Allergy/AdvReac Type Severity Reaction Status Date / Time No Known Allergies Allergy Verified 05/18/21 10:42 PFSH Acute PFSH: Medical History (Updated 05/18/21 @ 20:50 by Osiel Lowe DO) BPH (benign prostatic hyperplasia) COPD (chronic obstructive pulmonary disease) Coronary artery disease Diabetes mellitus type 2 in obese Stable Diastolic congestive heart failure Compensated currently Hyperlipidemia Hypertension Lymphedema Peptic ulcer disease No complaints Tobacco dependency Surgical History History of carpal tunnel surgery of left wrist History of carpal tunnel surgery of right wrist History of coronary angioplasty with insertion of stent Family History Other CAD (coronary artery disease) Social History Smoking and tobacco status: current every day smoker Alcohol intake: current Alcohol intake frequency: 3 or more drinks per day Alcohol type: hard liquor Vitals/I&O/Wt Last Vital Signs Temp 98.3 F 05/18/21 16:44 Pulse 90 05/18/21 16:44 Resp 18 05/18/21 16:44 BP 124/66 05/18/21 16:44 Pulse Ox 98 05/18/21 16:44 05/18/21 05/18/21 05/18/21 06:59 14:59 22:59 Intake Total 0 / 0 350 / 350 Balance 0 / 0 350 / 350 Weight last 48 hrs Weight 200 lb Weight 200 lb Physical Exam Const: COMMON NORMALS: patient oriented x3 GENERAL APPEARANCE: cooperative, ill appearing and appears older than stated age NUTRITIONAL APPEARANCE: obese ORIENTATION/CONSCIOUSNESS: Yes oriented to person, Yes oriented to place and Yes oriented to time HENMT: COMMON NORMALS: normocephalic HEAD & SCALP: normocephalic Eye: GENERAL EYE: appearance normal, both eyes and all related structures Chest: COMMONS NORMALS: normal inspection of the chest Resp: COMMON NORMALS: normal respiratory effort EFFORT & INSPECTION: Yes able to speak in complete sentences Cardio: COMMON NORMALS: regular rate and regular rhythm RATE: regular rate RHYTHM: regular rhythm GI: COMMON NORMALS: Normal to inspection, nondistended, normoactive bowel sounds present and Soft to palpation INSPECTION: Yes normal to inspection PALPATION: Yes Soft to palpation RECTAL EXAM: Yes deferred : COMMON NORMALS: Yes no CVA tenderness BLADDER/KIDNEY EXAM: Yes no CVA tenderness Back/Pelvis: COMMON NORMALS: no CVA tenderness Extremity: LEFT LOWER EXTREMITY: Yes foot & digits Left foot and digits: Yes palpation (bilteral foot tenderness) Neuro: COMMON NORMALS: patient oriented x3 SENSORIUM/ORIENTATION: Yes oriented to person, Yes oriented to place and Yes oriented to time Psych: COMMON NORMALS: mental status grossly normal Data Imaging^: CT Abd/Pel: My impression: This area of possible stricture in the sigmoid is concerning for possible neoplasm. Radiologist's impression: 1. Short segment stricture measuring 4.4 cm in the sigmoid colon. Not causing a significant obstruction. This may be neoplastic or postinflammatory stricture or peristalsis. Recommend follow-up colonoscopy. 2. Very mild dilatation of the central bile ducts and common bile duct which may be physiologic and related to aging. 3. Sludge or small stones within the gallbladder lumen. No gallbladder wall thickening or edema. Sludge was previously reported on a prior ultrasound 09/29/2019. A&P Assessment and plan (1) GIB (gastrointestinal bleeding): 75-year-old male with multiple medical problems in general poor health presents with a GI bleed. He is mildly symptomatic from this but undergoing transfusions. Recommend repeat CBC and potential transfusion to greater than 10 given his cardiac history. Patient will benefit from EGD and colonoscopy. I do not know how well he would tolerate the prep this evening so we will prep him with sort of a slow prep tomorrow with mag citrate every 8 and plan for scopes on morning hopefully. Patient understands the plan consent will be obtained. Status: Acute Qualifiers: GI bleed type/associated pathology: unspecified gastrointestinal hemorrhage type Qualified Code(s): K92.2 - Gastrointestinal hemorrhage, unspecified Consult Attestations Time Spent in Patient Care: 16 - 35 minutes Coding Level of Care Code Acute Senior Operations Analyst for [facility] Fwd Exam Comprehensive Diagnoses GIB (gastrointestinal bleeding) K92.2 GI bleed type/associated pathology: unspecified gastrointestinal hemorrhage type
[2021-05-18 20:59] LABS: Glucose Point of Care 194 mg/dL (70-110)
[2021-05-18] MEDS: gabapentin 300 mg Capsule PO (21:07)
[2021-05-18 23:26] LABS: Hemoglobin 7.7 g/dL (11.7-16.6)
[2021-05-19] VITALS (33 sets, daily range): BP systolic 82–167; BP diastolic 41–74; PULSE 59–103; RESP 16–20; TEMP 36.4–36.9; O2SAT 95–100
[2021-05-19] MEDS: pantoprazole 40 mg SDV IVP ×2 (04:41→16:13)
[2021-05-19 05:27] LABS: Basophils % 0.5 %; Eosinophils # 0.1 10^3/uL (0.0-0.8); Eosinophils % 0.9 %; Hematocrit 29.3 % (42.0-52.0); Lymphocytes # 1.4 10^3/uL (0.8-4.8); Lymphocytes % 18.2 %; Mean Corpuscular HGB Conc 30.7 g/dL (30.0-36.0); Mean Corpuscular Hemoglobin 31.8 pg (28.0-34.0); Mean Corpuscular Volume 103.5 fl (80-94); Mean Platelet Volume 9.6 fL (7.4-10.4); Monocytes # 0.6 10^3/uL (0.2-0.9); Neutrophils # 5.42 10^3/uL (1.8-7.7); Neutrophils % 71.6 %; Nucleated Red Blood Cells # 0.1 /100WBC; Nucleated Red Blood Cells % 0.7 %; Platelet Count 253 10^3/cmm (130-400); Red Blood Count 2.83 10^6/uL (4.1-5.3); Red Cell Distribution Width 15.3 % (12.1-15.1); White Blood Count 7.6 10^3/uL (4.0-10.0)
[2021-05-19] MEDS: sodium chloride 0.9% (100 ml) 100 ML 150 ML (05:43)
[2021-05-19] MEDS: finasteride 5 mg Tablet PO (05:44)
[2021-05-19] MEDS: atorvastatin 40 mg Tablet 80 MG PO (05:44)
[2021-05-19] MEDS: tamsulosin 0.4 mg Capsule PO (05:44)
[2021-05-19 05:47] LABS: Alanine Aminotransferase 6 U/L (0-41); Alkaline Phosphatase 79 IU/L (40-130); Anion Gap 14.1 (5-19); Aspartate Amino Transferase 9 U/L (0-40); Blood Urea Nitrogen 20 mg/dL (8-23); Calcium 8.2 mg/dL (8.5-10.5); Carbon Dioxide 24 mmol/L (22-29); Chloride 103 mmol/L (98-107); Globulin 2.4 g/dL (1.3-4.6); Glucose 128 mg/dL (65-115); Osmolality Calculated 288 mOsm/kg (285-295); Potassium 4.1 mmol/L (3.5-5.1); Sodium 137 mmol/L (136-145); Total Bilirubin 0.3 mg/dL (0.15-1.2); Total Protein 5.4 g/dL (6.6-8.7)
[2021-05-19 06:49] LABS: Glucose Point of Care 169 mg/dL (70-110)
[2021-05-19 08:53] LABS: Hemoglobin 8.2 g/dL (11.7-16.6)
[2021-05-19] MEDS: gabapentin 300 mg Capsule PO ×3 (09:14→20:15)
[2021-05-19] MEDS: tizanidine 4 mg Tablet 2 MG PO ×2 (09:14→18:31)
[2021-05-19] MEDS: multivitamin therapeutic Tablet 1 TAB PO (09:14)
[2021-05-19] MEDS: thiamine 100 mg Tablet PO (09:14)
[2021-05-19] MEDS: folic acid 1 mg Tablet PO (09:15)
[2021-05-19] MEDS: magnesium citrate Btl 296 mL PO ×3 (09:18→20:15)
[2021-05-19] MEDS: metoprolol tartrate 25 mg Tablet PO (09:24)
[2021-05-19] MEDS: albuterol 8 gm MDI 2 PUFF INHALATION ×3 (09:55→20:57)
--- NOTE | 2021-05-19 10:26 | PM.PN ---
Subjective Subjective: Interval history: Patient notes that he feels about the same as he did yesterday. He was able to tolerate the first bottle of mag citrate without issue but has not had a bowel movement yet. He denies hematemesis or bloody bowel movements. Vitals/I&O/Wt Last Vital Signs Temp 97.8 F 05/19/21 09:00 Pulse 59 L 05/19/21 09:55 Resp 18 05/19/21 09:55 BP 167/74 05/19/21 09:00 Pulse Ox 97 05/19/21 09:55 05/18/21 05/19/21 05/19/21 22:59 06:59 14:59 Intake Total 350 / 350 550 / 900 480 / 480 Balance 350 / 350 550 / 900 480 / 480 Weight last 48 hrs Weight 205 lb 3.2 oz Weight 200 lb Weight 200 lb Physical Exam Const: COMMON NORMALS: no acute distress and patient oriented x3 GI: COMMON NORMALS: Normal to inspection, nondistended, normoactive bowel sounds present INSPECTION: Yes normal to inspection Neuro: COMMON NORMALS: patient oriented x3 Data : 05/19/21 08:48 05/19/21 05:06 A&P Assessment and plan (1) GIB (gastrointestinal bleeding): 75-year-old male with GI bleed of unknown origin at this point. Plan is for EGD and colonoscopy with bowel prep today and scope tomorrow around noon. Patient appeared to appropriately respond initially to the transfusion however his repeat hemoglobin this morning did drop. Based on his vitals right now he is asymptomatic. I would just trend his hemoglobin with a repeat this afternoon. Status: Acute Qualifiers: GI bleed type/associated pathology: unspecified gastrointestinal hemorrhage type Qualified Code(s): K92.2 - Gastrointestinal hemorrhage, unspecified Attestations Medical Necessity Statement*: Patient with a GI bleed of unknown source. He needs work-up for the GI bleed requiring hospitalization. Coding Level of Care Code Acute Cupola Tapper for [facility] Diagnoses GIB (gastrointestinal bleeding) K92.2 GI bleed type/associated pathology: unspecified gastrointestinal hemorrhage type
--- NOTE | 2021-05-19 10:33 | PM.PN ---
Subjective Subjective: Interval history: She says he is feeling about the same like yesterday. Denies any chest pain today. Denies any vomiting. No abdominal pain. Discussed with him hemoglobin has come down further. Discussed additional. BC transfusion. He is agreeable. Vitals/I&O/Wt Last Vital Signs Temp 97.8 F 05/19/21 09:00 Pulse 59 L 05/19/21 09:55 Resp 18 05/19/21 09:55 BP 167/74 05/19/21 09:00 Pulse Ox 97 05/19/21 09:55 05/18/21 05/19/21 05/19/21 22:59 06:59 14:59 Intake Total 350 / 350 550 / 900 480 / 480 Balance 350 / 350 550 / 900 480 / 480 Weight last 48 hrs Weight 93.077 kg Weight 90.718 kg Weight 90.718 kg Physical Exam Const: COMMON NORMALS: no acute distress and patient oriented x3 HENMT: COMMON NORMALS: oropharynx normal Neck/C-Spine: COMMON NORMALS: no JVD Resp: COMMON NORMALS: normal respiratory effort and clear to auscultation bilaterally AUSCULTATION: clear to auscultation bilaterally Cardio: COMMON NORMALS: no JVD, regular rhythm, S1 normal heart sound present, S2 normal heart sound present and No murmurs present (Cardio) RHYTHM: regular rhythm HEART SOUNDS: S1 normal heart sound present and S2 normal heart sound present GI: COMMON NORMALS: Normal to inspection, nondistended, normoactive bowel sounds present, Soft to palpation and non-tender PALPATION: Yes Soft to palpation Extremity: COMMON NORMALS: no joint enlargement GENERAL: Yes edema (2+) OTHER: chronic severe stasis changes BL LE below knees Neuro: COMMON NORMALS: patient oriented x3 and moves all extremities Skin: COMMON NORMALS: no rashes or lesions noted GENERAL SKIN EXAM: no rashes or lesions noted Data : 05/19/21 08:48 05/19/21 05:06 A&P Assessment and plan (1) GIB (gastrointestinal bleeding): Received additional 1 unit PRBC last night, this morning recheck hemoglobin down from 9 to 8.2. Transfuse additional unit. pRBC. Recheck hemoglobin. If needs additional blood consider additional transfusion of platelets. FFP. Patient symptomatic anemia with underlying coronary disease, possible recent ischemia. Given possible recent myocardial event we will target her hemoglobin closer to 10. Hold aspirin. Given inadequate response to transfusions hold Plavix. Plans for EGD, being also prepped for colonoscopy. Continue PPI twice daily. Status: Acute Qualifiers: GI bleed type/associated pathology: unspecified gastrointestinal hemorrhage type Qualified Code(s): K92.2 - Gastrointestinal hemorrhage, unspecified (2) Chest pain: This morning chest pain-free. Transfuse additional PBC as above. Discussed with him concern of possible recent myocardial event given decreasing troponin level. No suggestion of STEMI. Possible recent NSTEMI. Complete troponin EKG series. No useful images could be visualized on TTE. Discussed with him consideration of test being done with contrast. On careful consideration he is agreeable. Antiplatelets on hold due to concern of inadequate transfusion response. He is also very orthopneic. Has received PRBC transfusion. Will give 40 mg IV Lasix and continue daily. Status: Acute (3) Coronary artery disease: History of CAD with stenting in the past. Continue statin, beta-pedro luis. Monitor blood pressures Status: Acute (4) Peptic ulcer disease: Status: Acute (5) Alcohol abuse: Drinks about half a pint of alcohol a night. Encourage cessation. Vitamins. Monitor for withdrawal. Status: Acute Additional A&P Information Nocturnal hypoxia: uses night-time O2. BPH: Continue BPH meds. Monitor blood pressures. Chronic lower extremity lymphedema COPD: Continue inhalers DM2 HTN HLD Smoking addiction: Continue to encourage cessation. Nicotine supplements as needed. Attestations Medical Necessity Statement*: Requires continued hospitalization due to acute blood loss anemia, GI bleeding, requiring additional RBC transfusion, requiring additional work-up of episodes of chest pain. Coding Level of Care Code Acute Supervisor Dried Yeast for [facility] Fwd Diagnoses GIB (gastrointestinal bleeding) K92.2 GI bleed type/associated pathology: unspecified gastrointestinal hemorrhage type Chest pain R07.9 Coronary artery disease I25.10 Peptic ulcer disease K27.9 Alcohol abuse F10.10
--- NOTE | 2021-05-19 10:42 | PC.CHAP ---
Pastoral Care Encounter/Spiritual Assessment Type of Contact [] Declined aircraft painter apprentice visit [] Patient/Family/Request visit [] Outpatient visit [] Follow-up visit [] Physician referral [] Code/Alert [x] Routine visit [] Staff referral [] Actively dying [] Patient sleeping [] Family support [] [] Out of room [] Palliative care [] [] Receiving care in room [] Pre-surgical visit [] Trauma [] Long length of stay [] ICU visit [] Other: Relational/Emotional Strength [x] Patient feels connected with others/family/visitors/staff [] Distress [] Loneliness/isolation [] Abandonment Spirituality of Patient [x] Person of Hazel [] Attends Scientologist of their Hazel [x] Believes in Prayer [] Reads Bible or Gnosticism materials [] There are Spiritual issues to be addressed Hydrodynamics Teacher Interventions [] Prayer [] Active listening [] Non-anxious presence [] Spiritual/emotional support [] Crisis/trauma care [] Spiritual counseling [] Bereavement support [] Provided bereavement packet [] Provided Bible/devotional materials [] Provided toy/stuffed animal, coloring book to patient or family member [] Provided Communion [] Anointing/Brandon [] Salvation [x] Completed spiritual assessment [] Other: Impact on Illness or Injury [] Angry [] Fearful [] Anxious [] Often cries [] Exhaustion [] Unable to work [] Unable to attend restorationism [] Unable to walk/stand [] Unable to read [] Unable to drive [] Unable to eat/drink [] Unable to sleep [] Unable to be with family [] Patient intubated [] Other: Summary Time spent with patient 10 min
[2021-05-19 11:07] LABS: Glucose Point of Care 155 mg/dL (70-110)
--- NOTE | 2021-05-19 13:06 | CT_ITS ---
WS: [id number] CT ANGIOGRAPHY ABDOMEN HISTORY: Gastrointestinal bleeding. TECHNIQUE: CT angiogram is performed during IV injection. Imaging during arterial and delayed phases. Reformation images reviewed. All CT scans at [facility] use at least one of these dose optimi zation techniques: automated exposure control; mA and/or kV adjustment per patient size (includes tar geted exams where dose is matched to clinical indication); or iterative reconstruction. CONTRAST: Omnipaque 350; 95 mL IV. DLP: 2290.12 mGy.cm COMPARISON: 05/18/2021 Emphysematous changes at the lung bases. Heart size is normal. No hiatal hernia. Abdominal aorta: Moderate atherosclerosis of the abdominal aorta. No aneurysm. Mild atherosclerotic p laque at the origin of the SMA and celiac axis. Bilateral renal arteries are patent. Accessory renal artery is noted on the LEFT. Very good opacification of the celiac axis and SMA. No area of active ex travasation from the SMA or DEV. Again noted is a mild circumferential wall thickening involving the sigmoid colon.Appears less stricture-like, may be postinflammatory area of narrowing with associated diverticula. This area does need to be further evaluated by colonoscopy. There is no area of active extravasation within acute bleed in the GI tract. Liver is normal size. Hemangioma in the LEFT lobe of the liver has been previously described. Gallbla dder is slightly contracted. Mild atrophy of the pancreas. Splenic granulomata. Normal adrenal glands . Simple cyst RIGHT kidney measures 3.2 cm. No ascites or adenopathy. Mild diffuse bladder wall thick ening and prostate gland enlargement. Mild increase in the lumbar lordosis. L5 anterolisthesis by 5 mm with bilateral pars defects at L5. CT/CT angio abdomen pelvis [id number] IMPRESSION: 1. No active extravasation of intravenous contrast within the GI tract to sugg est source of the bleeding. 2. Slight improvement in the narrowing of the sigmoid colon. May be postinflam matory stricture. Neoplasm needs to be excluded by colonoscopy. 3. Hemangioma LEFT lobe of the liver. 4. RIGHT renal cyst. 5. Prostate gland enlargement with bladder wall thickening.
[2021-05-19 13:26] LABS: Hemoglobin 8.3 g/dL (11.7-16.6)
--- NOTE | 2021-05-19 13:38 | P.ANESASSM_ITS ---
Pre-Anesthetic Assessment Pre-Anesthetic Assessment: Height/Weight: Height 1.65 m Weight 93.077 kg Temp Pulse Resp BP Pulse Ox 98.0 F 79 18 115/55 95 05/19/21 13:14 05/19/21 13:14 05/19/21 13:14 05/19/21 13:14 05/19/21 13:14 Preop Diagnosis: Gi bleed Proposed Procedure: Operation Date: 05/20/21 11:30 Proposed Procedures p EGD(Not Applicable) - Osiel Lowe DO s Colonoscopy(Not Applicable) - Osiel Lowe DO Familial anesthetic complications: None Social: Social History: Tobacco and No alcohol Comment: half a pint of Exam: Pre-Anes Outpt Exam: alert, oriented x 3, clear to auscultation bilaterally and regular rate & rhythm Airway: Cervical ROM: WNL MP: 3 Dentition: Chipped Additional comments: multiple missing, poor dentition Pulmonary: Pulmonary: COPD CV/HEM: CV/HEM: CAD (4 stents) Comments: CONCLUSIONS 1-Normal left ventricular cavity size. Normal left ventricular systolic function. No regional wall motion abnormalities. Left ventricular ejection fraction is estimated at 65 %. Grade I/IV diastolic dysfunction (abnormal relaxation filling pattern), normal to mildly elevated filling pressures. 2-There is no pericardial effusion. 3-The right ventricle is normal in size and function. RVSP could not be calculated due to incomplete tricuspid regurgitation velocity profile. 4-No significant valve abnormalities. 5-Right atrial pressure is around 5 mm of mercury. 6-No significant change since the prior echocardiogram study of 09/19/2018. GI: GI: GERD Metabolic: Metabolic: DM Anesthetic Plan: ASA status: 4 Anesthesia: MAC Risk of > 500 ml blood loss (7ml/kg in children): No Meds/Allergies Current Medications: Current Medications Generic Name Dose Route Start Last Admin Trade Name Freq PRN Reason Stop Dose Admin Albuterol Sulfate 2 puff 05/18/21 18:47 05/19/21 09:55 Albuterol 8 Gm M di INHALATION 2 puff QID PRN Administration Shortness Of [place] th Atorvastatin Calci um 80 mg 05/19/21 06:00 05/19/21 05:44 Atorvastatin 40 Mg Tablet PO 80 mg QAM ELENA Administration Finasteride 5 mg 05/19/21 06:00 05/19/21 05:44 Finasteride 5 Mg Tablet PO 5 mg QAM ELENA Administration Folic Acid 1 mg 05/19/21 09:00 05/19/21 09:15 Folic Acid 1 Mg Tablet PO 1 mg DAILY ELENA Administration Gabapentin 300 mg 05/18/21 21:00 05/19/21 09:14 Gabapentin 300 M g Capsule PO 300 mg TID ELENA Administration Insulin Aspart 0 unit 05/19/21 08:00 05/19/21 12:51 Insulin Aspart 1 00 Unit/1 Ml SUBCUT 2 unit TIDWM ELENA Administration Protocol Magnesium Citrate 296 ml 05/19/21 09:00 05/19/21 09:18 Magnesium Citrat e Btl 296 Ml PO 05/19/21 21:01 296 ml TID ELENA Administration Metoprolol Tartrat e 25 mg 05/19/21 09:00 05/19/21 09:24 Metoprolol Tartr ate 25 Mg Tablet PO 25 mg BID ELENA Administration Multivitamins Ther apeutic 1 tab 05/19/21 09:00 05/19/21 09:14 Multivitamin The rapeutic Tablet PO 1 tab DAILY ELENA Administration Pantoprazole Sodiu m 40 mg 05/19/21 04:30 05/19/21 04:41 Pantoprazole 40 Mg Sdv IVP 40 mg Q12H ELENA Administration Tamsulosin HCl 0.4 mg 05/19/21 06:00 05/19/21 05:44 Tamsulosin 0.4 M g Capsule PO 0.4 mg QAM ELENA Administration Thiamine Mononitra te 100 mg 05/19/21 09:00 05/19/21 09:14 Thiamine 100 Mg Tablet PO 100 mg DAILY ELENA Administration Tizanidine HCl 2 mg 05/19/21 09:00 05/19/21 09:14 Tizanidine 4 Mg Tablet PO 2 mg BID ELENA Administration PFSH Anesthesia PFSH: Medical History (Updated 05/18/21 @ 20:50 by Osiel Lowe DO) BPH (benign prostatic hyperplasia) COPD (chronic obstructive pulmonary disease) Coronary artery disease Diabetes mellitus type 2 in obese Stable Diastolic congestive heart failure Compensated currently Hyperlipidemia Hypertension Lymphedema Peptic ulcer disease No complaints Tobacco dependency Surgical History History of carpal tunnel surgery of left wrist History of carpal tunnel surgery of right wrist History of coronary angioplasty with insertion of stent Family History Other CAD (coronary artery disease) Social History Smoking and tobacco status: current every day smoker Alcohol intake: current Alcohol intake frequency: 3 or more drinks per day Alcohol type: hard liquor Data Anesthesia CBC & Chem 7: 05/19/21 13:18 05/19/21 05:06 Other Labs: Laboratory Results - last 48 hr 05/18/21 05/18/21 05/18/21 09:10 09:10 09:10 WBC 10.6 H RBC 2.42 L Hgb 7.8 L Hct 24.6 L MCV 101.7 H MCH 32.2 MCHC 31.7 RDW 15.1 Plt Count 297 MPV 9.5 Neut % (Auto) 78.8 Lymph % (Auto) 12.4 [place] % (Auto) 7.0 Eos % (Auto) 0.8 Baso % (Auto) 0.3 Neut # (Auto) 8.37 H Lymph # (Auto) 1.3 [place] # (Auto) 0.7 Eos # (Auto) 0.1 Baso # (Auto) 0.0 Nucleated RBC % (auto) 0.2 Nucleated RBCs # 0.0 Sodium 135 L Potassium 4.9 Chloride 96 L Carbon Dioxide 28 Anion Gap 15.9 BUN 26 H Creatinine 0.7 GFR Calculation Not Reportable Glucose 194 H POC Glucose Calculated Osmolality 290 Calcium 8.3 L Total Bilirubin 0.2 AST 11 ALT 8 Alkaline Phosphatase 87 Troponin T Baseline 91 H Troponin T 120 Minute Delta Troponin T Troponin T Hi Sens 6Hr Troponin T Hi Sens 6Hr Delta Total Protein 4.9 L Albumin 3.3 L Globulin 1.6 Blood Type Rho(D) Type Antibody Screen Crossmatch 05/18/21 05/18/21 05/18/21 10:05 11:10 14:55 WBC RBC Hgb Hct MCV MCH MCHC RDW Plt Count MPV Neut % (Auto) Lymph % (Auto) [place] % (Auto) Eos % (Auto) Baso % (Auto) Neut # (Auto) Lymph # (Auto) [place] # (Auto) Eos # (Auto) Baso # (Auto) Nucleated RBC % (auto) Nucleated RBCs # Sodium Potassium Chloride Carbon Dioxide Anion Gap BUN Creatinine GFR Calculation Glucose POC Glucose Calculated Osmolality Calcium Total Bilirubin AST ALT Alkaline Phosphatase Troponin T Baseline Troponin T 120 Minute 71.94 H Delta Troponin T -19.06 L Troponin T Hi Sens 6Hr 77.95 H Troponin T Hi Sens 6Hr Delta -13.05 L Total Protein Albumin Globulin Blood Type O Positive Rho(D) Type Positive Antibody Screen Negative Crossmatch See Detail 05/18/21 05/18/21 05/19/21 20:35 23:20 05:06 WBC 7.6 RBC 2.83 L Hgb 7.7 L 9.0 L Hct 29.3 L MCV 103.5 H MCH 31.8 MCHC 30.7 RDW 15.3 H Plt Count 253 MPV 9.6 Neut % (Auto) 71.6 Lymph % (Auto) 18.2 [place] % (Auto) 8.0 Eos % (Auto) 0.9 Baso % (Auto) 0.5 Neut # (Auto) 5.42 Lymph # (Auto) 1.4 [place] # (Auto) 0.6 Eos # (Auto) 0.1 Baso # (Auto) 0.0 Nucleated RBC % (auto) 0.7 Nucleated RBCs # 0.1 Sodium Potassium Chloride Carbon Dioxide Anion Gap BUN Creatinine GFR Calculation Glucose POC Glucose 194 H Calculated Osmolality Calcium Total Bilirubin AST ALT Alkaline Phosphatase Troponin T Baseline Troponin T 120 Minute Delta Troponin T Troponin T Hi Sens 6Hr Troponin T Hi Sens 6Hr Delta Total Protein Albumin Globulin Blood Type Rho(D) Type Antibody Screen Crossmatch 05/19/21 05/19/21 05/19/21 05:06 06:47 08:48 WBC RBC Hgb 8.2 L Hct MCV MCH MCHC RDW Plt Count MPV Neut % (Auto) Lymph % (Auto) [place] % (Auto) Eos % (Auto) Baso % (Auto) Neut # (Auto) Lymph # (Auto) [place] # (Auto) Eos # (Auto) Baso # (Auto) Nucleated RBC % (auto) Nucleated RBCs # Sodium 137 Potassium 4.1 Chloride 103 Carbon Dioxide 24 Anion Gap 14.1 BUN 20 Creatinine 0.5 L GFR Calculation Not Reportable Glucose 128 H POC Glucose 169 H Calculated Osmolality 288 Calcium 8.2 L Total Bilirubin 0.3 AST 9 ALT 6 Alkaline Phosphatase 79 Troponin T Baseline Troponin T 120 Minute Delta Troponin T Troponin T Hi Sens 6Hr Troponin T Hi Sens 6Hr Delta Total Protein 5.4 L Albumin 3.0 L Globulin 2.4 Blood Type Rho(D) Type Antibody Screen Crossmatch 05/19/21 05/19/21 11:00 13:18 WBC RBC Hgb 8.3 L Hct MCV MCH MCHC RDW Plt Count MPV Neut % (Auto) Lymph % (Auto) [place] % (Auto) Eos % (Auto) Baso % (Auto) Neut # (Auto) Lymph # (Auto) [place] # (Auto) Eos # (Auto) Baso # (Auto) Nucleated RBC % (auto) Nucleated RBCs # Sodium Potassium Chloride Carbon Dioxide Anion Gap BUN Creatinine GFR Calculation Glucose POC Glucose 155 H Calculated Osmolality Calcium Total Bilirubin AST ALT Alkaline Phosphatase Troponin T Baseline Troponin T 120 Minute Delta Troponin T Troponin T Hi Sens 6Hr Troponin T Hi Sens 6Hr Delta Total Protein Albumin Globulin Blood Type Rho(D) Type Antibody Screen Crossmatch Cardiac Studies: No Data to Display
--- NOTE | 2021-05-19 14:26 | PC.RESP ---
Sent information about smoking cessation and pulmonary rehab
[2021-05-19] MEDS: iohexol 350 mg/mL 100 mL Btl IV (14:30)
[2021-05-19] MEDS: sodium chloride 0.9% (100 ml) 100 ML 125 ML (15:56)
[2021-05-19 17:27] LABS: Glucose Point of Care 152 mg/dL (70-110)
[2021-05-19 19:55] LABS: Hematocrit 23.8 % (42.0-52.0); Hemoglobin 7.7 g/dL (11.7-16.6)
[2021-05-19 21:09] LABS: Glucose Point of Care 154 mg/dL (70-110)
[2021-05-19] MEDS: sodium chloride 0.9% (100 ml) 100 ML 25 ML (21:19)
[2021-05-19] MEDS: acetaminophen 325 mg Tablet 650 MG PO (23:42)
[2021-05-20] VITALS: BP 109/51; PULSE 74; RESP 20; TEMP 36.9; O2SAT 94
[2021-05-20 00:52] LABS: Hemoglobin 9.4 g/dL (11.7-16.6)
[2021-05-20 04:00] VITALS: BP 95/56; PULSE 65; RESP 16; TEMP 36.6; O2SAT 99
[2021-05-20] MEDS: acetaminophen 325 mg Tablet 650 MG PO ×2 (04:11→21:27)
[2021-05-20] MEDS: pantoprazole 40 mg SDV IVP (04:12)
[2021-05-20 05:47] LABS: Basophils % 0.4 %; Eosinophils % 0.4 %; Hematocrit 28.7 % (42.0-52.0); Hemoglobin 9.3 g/dL (11.7-16.6); Lymphocytes # 1.2 10^3/uL (0.8-4.8); Lymphocytes % 17.1 %; Mean Corpuscular HGB Conc 32.4 g/dL (30.0-36.0); Mean Corpuscular Hemoglobin 32.2 pg (28.0-34.0); Mean Corpuscular Volume 99.3 fl (80-94); Mean Platelet Volume 9.3 fL (7.4-10.4); Monocytes # 0.6 10^3/uL (0.2-0.9); Neutrophils # 5.17 10^3/uL (1.8-7.7); Neutrophils % 72.3 %; Nucleated Red Blood Cells % 0.6 %; Platelet Count 239 10^3/cmm (130-400); Red Blood Count 2.89 10^6/uL (4.1-5.3); Red Cell Distribution Width 16.3 % (12.1-15.1); White Blood Count 7.2 10^3/uL (4.0-10.0)
[2021-05-20 06:13] LABS: Anion Gap 14.4 (5-19); Blood Urea Nitrogen 8 mg/dL (8-23); Calcium 8.5 mg/dL (8.5-10.5); Carbon Dioxide 24 mmol/L (22-29); Chloride 105 mmol/L (98-107); Glucose 127 mg/dL (65-115); Osmolality Calculated 290 mOsm/kg (285-295); Potassium 3.4 mmol/L (3.5-5.1); Sodium 140 mmol/L (136-145)
[2021-05-20 10:30] VITALS: PULSE 75; RESP 16; O2SAT 97
[2021-05-20] MEDS: albuterol 8 gm MDI 2 PUFF INHALATION (10:30)
[2021-05-20 11:30] LABS: Glucose Point of Care 116 mg/dL (70-110)
[2021-05-20] MEDS: sodium chloride 0.9% 1,000 ML 30 ML IV (12:08)
--- NOTE | 2021-05-20 12:29 | W.PM.OPSUD ---
Surgery/Procedure H&P Update DATE OF PROCEDURE: May 20, 2021 DATE H&P PERFORMED: 05/18/21 H&P UPDATE INFORMATION: I have reviewed H&P completed within last 30 days, I have examined patient prior to procedure and No changes to prior documentation PREOP DIAGNOSIS: Gi bleed PRIMARY INDICATION FOR PROCEDURE: GI bleed diagnosis PLANNED PROCEDURE: Operation Date: 05/20/21 11:30 Proposed Procedures p EGD(Not Applicable) - DO kevan Manzo Colonoscopy(Not Applicable) - Osiel Lowe DO
[2021-05-20 13:42] VITALS: BP 142/86; PULSE 90; RESP 18; TEMP 36.2; O2SAT 97
[2021-05-20 15:08] LABS: Hemoglobin 9.6 g/dL (11.7-16.6)
--- NOTE | 2021-05-20 16:29 | P.PN_ITS ---
Subjective Subjective: Interval history: He is doing all right after his endoscopic procedure. Denies shortness of breath, chest pain or pressure. Denies abdominal pain. Discussed results with surgery in the form, discussed with him finding of no active bleeding, polyp in the colon. Discussed also with his . Discussed consideration of further steps. Vitals/I&O/Wt Last Vital Signs Temp 97.2 F L 05/20/21 13:42 Pulse 90 05/20/21 13:42 Resp 18 05/20/21 13:42 BP 142/86 05/20/21 13:42 Pulse Ox 97 05/20/21 13:42 05/20/21 05/20/21 05/20/21 06:59 14:59 22:59 Intake Total 820 / 2334 500 / 500 Output Total 900 / 1700 Balance -80 / 634 500 / 500 Weight last 48 hrs Weight 93.077 kg Weight 90.718 kg Physical Exam Const: COMMON NORMALS: no acute distress, patient oriented x3 and alert GENERAL APPEARANCE: cooperative ORIENTATION/CONSCIOUSNESS: Yes awake OTHER: SUN'AQ HENMT: COMMON NORMALS: oropharynx normal Neck/C-Spine: COMMON NORMALS: no JVD Resp: COMMON NORMALS: normal respiratory effort and clear to auscultation bilaterally AUSCULTATION: clear to auscultation bilaterally Cardio: COMMON NORMALS: no JVD, regular rhythm, S1 normal heart sound present, S2 normal heart sound present and No murmurs present (Cardio) RHYTHM: regular rhythm HEART SOUNDS: S1 normal heart sound present and S2 normal heart sound present GI: COMMON NORMALS: Normal to inspection, nondistended, normoactive bowel sounds present, Soft to palpation and non-tender PALPATION: Yes Soft to palpation Extremity: COMMON NORMALS: no joint enlargement GENERAL: Yes edema (2+) OTHER: chronic severe stasis changes BL LE below knees Neuro: COMMON NORMALS: patient oriented x3 and moves all extremities SE NSORIUM/ORIENTATION: Yes alert Skin: COMMON NORMALS: no rashes or lesions noted GENERAL SKIN EXAM: no rashes or lesions noted Data : 05/20/21 14:57 05/20/21 05:37 Micro: Microbiology 05/18/21 12:50 Occult Blood (FIT) - Final Stool Routine Collection A&P Assessment and plan (1) GIB (gastrointestinal bleeding): Results of EGD and colonoscopy appreciated. No active bleeding noted. Incidentally noted polyp removed in the colon. Discussed results with him and later with his . We discussed consideration of further steps. So far hemoglobin appears to be stabilizing, recheck this afternoon is 9.6. He has not been having any further chest pain. Discussed with him that given he will need long-term antiplatelet given history of CAD, stenting, would benefit from additional follow-up with GI to determine either when it is safe to restart platelets or to consider additional work-up with capsule endoscopy. This would have to be done in [place]. Discussed consideration of outpatient follow-up versus inpatient transfer. In case hemoglobin remained stable he would like to discharge and follow-up on outpatient side. Otherwise if needing further transfusion he is agreeable we may need to consider arrangements for hospital to hospital transfer. Discussed with him he would also need additional follow-up/assessment with regards to chest pain and concern for progression of coronary disease which may have become symptomatic in the setting of symptomatic anemia. Will require stress test with further consideration of more invasive testing depending on results. However, any intervention may be precluded by his current GI bleed and may need to be delayed. He is agreeable with plan. So far received total 4 units PRBC, 1 unit platelets, 1 unit FFP. Recheck hemoglobin in the morning. Hold aspirin. Hold Plavix for now also. Has history of CAD, last stent reports about 8 years ago. Patient symptomatic anemia with underlying coronary disease, possible recent ischemia. Given possible recent myocardial event we will target her hemoglobin closer to 10. Status: Acute Qualifiers: GI bleed type/associated pathology: unspecified gastrointestinal hemorrhage type Qualified Code(s): K92.2 - Gastrointestinal hemorrhage, unspecified (2) Chest pain: This morning chest pain-free. Transfuse additional PBC as above. Discussed with him concern of possible recent myocardial event given decreasing troponin level. No suggestion of STEMI. Possible recent NSTEMI. Complete troponin EKG series. No useful images could be visualized on TTE. Discussed with him consideration of test being done with contrast. On careful consideration he is agreeable. Antiplatelets on hold due to concern of inadequate transfusion response. He is also very orthopneic. Has received PRBC transfusion. Will give 40 mg IV Lasix and continue daily. Status: Acute (3) Coronary artery disease: History of CAD with stenting in the past. Continue statin. Held beta- pedro luis due to soft BP. Monitor blood pressures. Status: Acute (4) Peptic ulcer disease: History of. No active disease noted. Status: Acute (5) Alcohol abuse: Drinks about half a pint of alcohol a night. Encourage cessation. Vitamins. Monitor for withdrawal. Status: Acute Additional A&P Information Nocturnal hypoxia: uses night-time O2. BPH: Continue BPH meds. Monitor blood pressures. Chronic lower extremity lymphedema COPD: Continue inhalers DM2 HTN HLD Smoking addiction: Continue to encourage cessation. Nicotine supplements as needed. Attestations Medical Necessity Statement*: Continue admission for assessment management of acute blood loss anemia with GI bleeding in the setting of underlying CAD, past stenting, recent antiplatelet medications. Coding Level of Care Code Acute [employer] [facility] Fwd Exam Comprehensive Diagnoses GIB (gastrointestinal bleeding) K92.2 GI bleed type/associated pathology: unspecified gastrointestinal hemorrhage type Chest pain R07.9 Coronary artery disease I25.10 Peptic ulcer disease K27.9 Alcohol abuse F10.10
[2021-05-20 19:20] VITALS: BP 125/60; PULSE 68; RESP 20; TEMP 37; O2SAT 95
[2021-05-20 20:56] LABS: Glucose Point of Care 154 mg/dL (70-110)
[2021-05-20 21:48] VITALS: PULSE 72
[2021-05-21] VITALS: BP 120/56; PULSE 69; RESP 20; TEMP 36.4; O2SAT 100
[2021-05-21 04:10] VITALS: BP 139/65; PULSE 72; RESP 20; TEMP 36.9; O2SAT 97
[2021-05-21 06:01] LABS: Basophils % 0.3 %; Eosinophils % 0.6 %; Hematocrit 30.2 % (42.0-52.0); Hemoglobin 9.7 g/dL (11.7-16.6); Lymphocytes # 1.2 10^3/uL (0.8-4.8); Lymphocytes % 19.5 %; Mean Corpuscular HGB Conc 32.1 g/dL (30.0-36.0); Mean Corpuscular Hemoglobin 31.5 pg (28.0-34.0); Mean Corpuscular Volume 98.1 fl (80-94); Mean Platelet Volume 9.7 fL (7.4-10.4); Monocytes # 0.6 10^3/uL (0.2-0.9); Monocytes % 8.8 %; Neutrophils # 4.46 10^3/uL (1.8-7.7); Neutrophils % 70.3 %; Nucleated Red Blood Cells % 0.6 %; Platelet Count 278 10^3/cmm (130-400); Red Blood Count 3.08 10^6/uL (4.1-5.3); Red Cell Distribution Width 16.2 % (12.1-15.1); White Blood Count 6.4 10^3/uL (4.0-10.0)
[2021-05-21 06:20] LABS: Anion Gap 15.2 (5-19); Blood Urea Nitrogen 5 mg/dL (8-23); Calcium 8.4 mg/dL (8.5-10.5); Carbon Dioxide 23 mmol/L (22-29); Chloride 102 mmol/L (98-107); Glucose 115 mg/dL (65-115); Osmolality Calculated 282 mOsm/kg (285-295); Potassium 3.2 mmol/L (3.5-5.1); Sodium 137 mmol/L (136-145)
[2021-05-21 07:40] VITALS: BP 147/68; PULSE 67; RESP 18; TEMP 36.7; O2SAT 95
[2021-05-21] MEDS: potassium chloride oral liq 20 mEq/15 mL UDC 40 MEQ PO (09:14)
--- NOTE | 2021-05-21 10:16 | PC.SOCIAL ---
IMM Update Pg. 2 of IMM updated and reviewed with patient who verbalized understanding. Copy provided.
--- NOTE | 2021-05-21 11:02 | P.DS_ITS ---
Discharge Providers Date of Admission: 05/18/21 14:52 Date of Discharge: May 21, 2021 Attending Provider at Admission: Carlin Caldwell Attending Provider at Discharge: Carlin Caldwell Primary Care Provider: Hany Manzanares MD Diagnoses at Discharge Discharge Diagnosis (1) GIB (gastrointestinal bleeding): Status: Acute Qualifiers: GI bleed type/associated pathology: unspecified gastrointestinal hemorrhage type Qualified Code(s): K92.2 - Gastrointestinal hemorrhage, un specified (2) Chest pain: Status: Acute (3) Coronary artery disease: Status: Acute (4) Peptic ulcer disease: Status: Acute Permanent problem details: No complaints (5) Alcohol abuse: Status: Acute Reason for Visit Reason for Visit: CHEST PAIN Hospital Course Hospital Course 75-year-old gentleman with a number of comorbidities including CAD with remote coronary artery stenting which he reports was about 8 years ago, as well as history of PUD, as well as daily alcohol intake about half a pint, current smoker among other conditions was admitted for assessment management due to GI bleeding with melanotic stools, presentation also reported having on and off episodes of progressive chest pain over several days. On admit noted with acute decrease in hemoglobin down to 7.8, prior 12.5 in September 2019, antiplatelet medications were held. Underwent PRBC transfusion. Initial work-up showed EKG not suggestive of acute ischemia, elevated troponin with fluctuating level from [id number]. After transfusion symptoms resolved and had no further recurrence of chest pain. As per discussion with him and his , suspicion is that due to symptomatic anemia may have developed demand ischemia, with possibility of progressive CAD from prior which will need additional investigation once bleeding is under control. He underwent a total of 4 units of PBC transfusion, as well as 1 unit of FFP and platelets due to initially persistently inadequate response to PRBC transfusion. Continued having melanotic/maroon-colored stools. CT abdomen pelvis at presentation with short stricture measuring 4.4 cm in sigmoid colon not causing any significant obstruction. Possibly neoplastic or postinflammatory stricture considered. Incidentally noted mild dilation of central bile ducts, sludge or small stones within the gallbladder lumen. No gallbladder wall thickening or edema. Sludge previously seen on ultrasound 09/29/2019. CTA abdomen pelvis could not identify active extravasation within GI tract to pinpoint a source of bleeding. Noted slight improvement in narrowing of sigmoid colon, possibly postinflammatory stricture, neoplasm not excluded. Hemangioma noted in the left lobe of the liver. Right renal cyst. Prostate gland enlargement with bladder wall thickening. He subsequently underwent additional instigation by EGD and colonoscopy which again did not identify a source of bleeding. An incidental polyp removed on co lonoscopy. Ileocecal valve could not be intubated. Hemoglobin subsequently stabilized and remains at 9.7. He remains chest pain- free. As per discussion with him and his of a number of different options he prefers to discharge and follow-up with gastroenterology in [place] to set up for capsule endoscopy. For now we are holding antiplatelet medications but he will need to resume at least one of them long-term due to history of CAD with stenting 8 years ago once it is safe to do so with regards to the GI bleeding. For now he is asked to hold medications for a week, unless instructed otherwise by gastroenterology or primary provider. Once he can tolerate antiplatelet medication, consider also referral for stress testing to further assess for progression of coronary disease which may require additional subsequent investigation as discussed with him, possibly even additional revascularization once he is able to tolerate anticoagulation, depending on findings of subsequent assessment. Please continue to optimize risk factors of CAD. Continue to encourage smoking cessation, alcohol abstinence. Metabolic syndrome. Physical Exam Const: COMMON NORMALS: no acute distress, patient oriented x3 and alert GENERAL APPEARANCE: cooperative ORIENTATION/CONSCIOUSNESS: Yes awake OTHER: [place] HENMT: COMMON NORMALS: oropharynx normal Neck/C-Spine: COMMON NORMALS: no JVD Resp: COMMON NORMALS: normal respiratory effort and clear to auscultation bilaterally AUSCULTATION: clear to auscultation bilaterally Cardio: COMMON NORMALS: no JVD, regular rhythm, S1 normal heart sound present, S2 normal heart sound present and No murmurs present (Cardio) RHYTHM: regular rhythm HEART SOUNDS: S1 normal heart sound present and S2 normal heart sound present GI: COMMON NORMALS: Normal to inspection, nondistended, normoactive bowel sounds present, Soft to palpation and non-tender PALPATION: Yes Soft to palpation Extremity: COMMON NORMALS: no joint enlargement GENERAL: Yes edema (1-2+) OTHER: chronic severe stasis changes BL LE below knees Neuro: COMMON NORMALS: patient oriented x3 and moves all extremities SENSORIUM/ORIENTATION: Yes alert Skin: COMMON NORMALS: no rashes or lesions noted GENERAL SKIN EXAM: no rashes or lesions noted Discharge Data Data Completed and Pending: Completed Studies During Hospitalization Category Date Time Status CT abdomen pelvis w con* [id number] Stat Cat Scan 05/18/21 13:[address] angio abdomen pelvis [id number] Stat Cat Scan 05/19/21 13:06 Completed XR chest 1V rojelio ble [id number] Stat Exams 05/18/21 09:23 Completed Pending at discharge Category Date Time Status ABO/Rh Type Routi ne Lab 05/18/21 10:05 Results Basic Metabolic P andrew AM LABS Lab 05/22/21 04:00 Ordered Complete Blood Co unt w/Auto AM LABS Lab 05/22/21 04:00 Ordered Complete Crossmat ch Routine Lab 05/18/21 10:05 Results Frozen Plasma FZ <24 1st Cont Routi ne Lab 05/19/21 12:53 Results Leukocyte Reduced RBC Stat Lab 05/18/21 10:05 Results Platelets Leuko-R educed Routine Lab 05/19/21 12:53 Results Type and Screen R outine Lab 05/18/21 10:05 Results Pathology: Surgic al [PTH] Routine Pth 05/20/21 13:39 Received Labs from last 24 hours 05/21/21 05/21/21 05/20/21 04:49 04:49 20:52 WBC 6.4 RBC 3.08 L Hgb 9.7 L Hct 30.2 L MCV 98.1 H MCH 31.5 MCHC 32.1 RDW 16.2 H Plt Count 278 MPV 9.7 Neut % (Auto) 70.3 Lymph % (Auto) 19.5 [place] % (Auto) 8.8 Eos % (Auto) 0.6 Baso % (Auto) 0.3 Neut # (Auto) 4.46 Lymph # (Auto) 1.2 [place] # (Auto) 0.6 Eos # (Auto) 0.0 Baso # (Auto) 0.0 Nucleated RBC % (a uto) 0.6 Nucleated RBCs # 0.0 Sodium 137 Potassium 3.2 L Chloride 102 Carbon Dioxide 23 Anion Gap 15.2 BUN 5 L Creatinine 0.5 L GFR Calculation Not Reportable Glucose 115 POC Glucose 154 H Calculated Osmolal ity 282 L Calcium 8.4 L 05/20/21 05/20/21 14:57 11:17 WBC RBC Hgb 9.6 L Hct MCV MCH MCHC RDW Plt Count MPV Neut % (Auto) Lymph % (Auto) [place] % (Auto) Eos % (Auto) Baso % (Auto) Neut # (Auto) Lymph # (Auto) [place] # (Auto) Eos # (Auto) Baso # (Auto) Nucleated RBC % (a uto) Nucleated RBCs # Sodium Potassium Chloride Carbon Dioxide Anion Gap BUN Creatinine GFR Calculation Glucose POC Glucose 116 H Calculated Osmolal ity Calcium Vitals: Last Vital Signs Temp 98.0 F 05/21/21 07:40 Pulse 67 05/21/21 07:40 Resp 18 05/21/21 07:40 BP 147/68 05/21/21 07:40 Pulse Ox 95 05/21/21 07:40 Discharge Plan Discharge Patient Disposition: Home Condition: Stable Prescriptions: New folic acid 1 mg Tablet 1 mg PO DAILY Qty: 90 RF: 0 pantoprazole 40 mg tablet,delayed release (DR/EC) 40 mg PO BID Qty: 84 RF: 0 Continued albuterol sulfate 90 mcg/actuation HFA aerosol inhaler 2 puff INHALATION QID PRN (Reason: Shortness Of Breath) RF: 0 atorvastatin [Lipitor] 80 mg tablet 80 mg PO QAM RF: 0 tamsulosin 0.4 mg Capsule 0.4 mg PO QAM RF: 0 finasteride 5 mg Tablet 5 mg PO QAM RF: 0 furosemide [Lasix] 40 mg Tablet 40 mg PO DAILY@12 RF: 0 potassium chloride 10 mEq Tablet Extended Release 20 meq PO TID RF: 0 gabapentin 300 mg Capsule 300 mg PO TID RF: 0 metoprolol tartrate 25 mg Tablet 25 mg PO BID RF: 0 metformin 500 mg tablet 250 mg PO QAM RF: 0 magnesium 500 mg Tablet 500 mg PO QAM RF: 0 tizanidine 2 mg tablet 2 mg PO BID RF: 0 albuterol sulfate 2.5 mg /3 mL (0.083 %) solution for nebulization 2.5 mg inhalation QID PRN (Reason: Shortness Of Breath Or Wheezing) RF: 0 morphine 30 mg tablet extended release 30 mg PO DAILY RF: 0 Tylenol Ex Str Rapid Release 500 mg Tablet 1,000 mg PO Q4H PRN (Reason: Pain) RF: 0 oxycodone-acetaminophen 10-325 mg tablet 1 tab PO DAILY PRN (Reason: Pain) RF: 0 Lasix 80 mg Tablet 80 mg PO QAM RF: 0 Stool Softener 100 mg Capsule 600 mg PO BID@,12 RF: 0 saw palmetto 450 mg Capsule 900 mg PO TID RF: 0 Held clopidogrel [Plavix] 75 mg Tablet 75 mg PO QAM RF: 0 Hold Instructions: Resume on 05/28/21. Discontinued pantoprazole 20 mg Tablet,Delayed Release (Dr/Ec) 20 mg PO QAM RF: 0 Discharge Orders: Discharge Order (Routine); Ordered 05/21/21 Ordered By: Carlin Caldwell Referrals: Madeline Mosquera [Other] - 4-7 days (Referral Fax - Capsule endoscopy due to GI bleeding and no source on upper or lower endoscopy, with CAD, remote coronary stenting history, needing long-term antiplatelet agent.) Hany Manzanares MD [Primary Care Provider] - 4-7 days Discharge Diet: Advance as tolerated Discharge Activity: Increase activity as tolerated and Oxygen as instructed Patient Instructions: Alcohol Abuse, Clopidogrel (By mouth), Pantoprazole (By mouth), Coronary Artery Disease (GEN), Gastrointestinal Bleeding (GEN), GI Discharge Instructions, Opioid Safety Activity Restrictions/Additional Instructions: Please set up with gastroenterology in [place] for assessment by capsule endoscopy. Please hold Plavix (clopidogrel) for the next week or when cleared to start taking again by gastroenterology or your primary provider. Please note that you will need emt intermediate treatment with antiplatelet and so restarting either Plavix or aspirin will be important as soon as it is safe to do so. On follow-up with your primary provider please also discuss referral for stress testing to further assess for progression of coronary artery disease due to episodes of chest pain you had with symptomatic anemia, this would be safest once bleeding has been under control and you are restarted on Plavix. Please abstain from any alcohol abuse as this may contribute to recurrence of gastrointestinal bleeding, lead to elevated blood pressure and increased cardio vascular risk, as well as exposing you to risk of liver cirrhosis and other complications. Please stop smoking. Continued smoking exposes you to risk of additional heart attack especially with already known coronary disease, risks of stroke, risk of progression of lung disease, as well as various cancers. If you experience further bleeding, chest pain, any dizziness, lightheadedness, fainting, severe abdominal pain, or any other concerning symptoms, call 911. Discharge Attestations Time Spent in Discharge Care*: greater than 30 min Quality Metrics Clinical Quality Measures During this hospital stay, did patient experience: None Coding Level of Care Code Acute g [facility] note Diagnoses GIB (gastrointestinal bleeding) K92.2 GI bleed type/associated pathology: unspecified gastrointestinal hemorrhage type Chest pain R07.9 Coronary artery disease I25.10 Peptic ulcer disease K27.9 Alcohol abuse F10.10
[2021-05-21 11:14] VITALS: BP 142/65; PULSE 78; RESP 16; TEMP 37; O2SAT 95
--- NOTE | 2021-05-21 15:32 | PC.CHAP ---
Pastoral Care Encounter/Spiritual Assessment Type of Contact [] Declined spanish speaking nanny visit [] Patient/Family/Request visit [] Outpatient visit [xx] Follow-up visit [] Physician referral [] Code/Alert [] Routine visit [] Staff referral [] Actively dying [] Patient sleeping [] Family support [] [xx] Out of room [] Palliative care [] [] Receiving care in room [] Pre-surgical visit [] Trauma [] Long length of stay [] ICU visit [] Other: Relational/Emotional Strength [] Patient feels connected with others/family/visitors/staff [] Distress [] Loneliness/isolation [] Abandonment Spirituality of Patient [] Person of Hazel [] Attends Buddhist of their Hazel [] Believes in Prayer [] Reads Bible or Presybeterian materials [] There are Spiritual issues to be addressed Actuarial Internship Interventions [] Prayer [] Active listening [] Non-anxious presence [] Spiritual/emotional support [] Crisis/trauma care [] Spiritual counseling [] Bereavement support [] Provided bereavement packet [] Provided Bible/devotional materials [] Provided toy/stuffed animal, coloring book to patient or family member [] Provided Communion [] Anointing/Rice [] Salvation [] Completed spiritual assessment [] Other: Impact on Illness or Injury [] Angry [] Fearful [] Anxious [] Often cries [] Exhaustion [] Unable to work [] Unable to attend uatsdin [] Unable to walk/stand [] Unable to read [] Unable to drive [] Unable to eat/drink [] Unable to sleep [] Unable to be with family [] Patient intubated [] Other: Summary Patient was out of room. Follow up later. Time spent with patient
--- NOTE | 2021-05-24 10:17 | PC.SOCIAL ---
discharge follow up call made, spoke with patients , she reports new medications were picked up from the pharmacy and pt is taking as directed. is aware of holding plavix until 8. reports patient is working on smoking cessation and he hasn't drank any alcohol. patient has follow up appointment with pcp tomorrow. at this appointment pt will discuss follow up with jeremie mcguire. denies any questions or concerns.
== END 2021-05-21 12:45 | disposition home or self-care (01) | DRG 378 ==
LOC: ER 13:59 → MEDSURG 15:59
PROVIDERS: Anesthesiology Critical Care Medicine; Admitting Provider Internal Medicine; Emergency Provider Family Medicine; PCP Family Medicine; Visit Provider Internal Medicine
PROC: 0DJ08ZZ Inspection of Upper Intestinal Tract, Via Natural or Artificial Opening Endoscopic (ICD-10-PCS; CPT 43235; principal; 2021-05-20 11:30)
PROC: 0DJD8ZZ Inspection of Lower Intestinal Tract, Via Natural or Artificial Opening Endoscopic (ICD-10-PCS; CPT 45378; 2021-05-20 11:30)
DX: K92.1 Melena (principal); I50.30 Unspecified diastolic (congestive) heart failure; D62 Acute posthemorrhagic anemia; I24.8 Other forms of acute ischemic heart disease; K21.9 Gastro-esophageal reflux disease without esophagitis; R93.5 Abnormal findings on diagnostic imaging of other abdominal regions, including retroperitoneum; I25.10 Atherosclerotic heart disease of native coronary artery without angina pectoris; F10.10 Alcohol abuse, uncomplicated; J44.9 Chronic obstructive pulmonary disease, unspecified; R07.9 Chest pain, unspecified; I11.0 Hypertensive heart disease with heart failure; E11.51 Type 2 diabetes mellitus with diabetic peripheral angiopathy without gangrene; K63.5 Polyp of colon; K57.30 Diverticulosis of large intestine without perforation or abscess without bleeding; E78.5 Hyperlipidemia, unspecified; I89.0 Lymphedema, not elsewhere classified; F17.200 Nicotine dependence, unspecified, uncomplicated; N40.0 Benign prostatic hyperplasia without lower urinary tract symptoms; R09.02 Hypoxemia; E66.9 Obesity, unspecified; Z68.34 Body mass index [BMI] 34.0-34.9, adult; Z95.5 Presence of coronary angioplasty implant and graft; Z87.11 Personal history of peptic ulcer disease; Z79.02 Long term (current) use of antithrombotics/antiplatelets; Z79.82 Long term (current) use of aspirin; Z79.84 Long term (current) use of oral hypoglycemic drugs; Z79.891 Long term (current) use of opiate analgesic
CPT/HCPCS: 36415; 36416; 36430; 43235; 45380; 71045; 74174; 74177; 80048; 80053; 82274; 82962; 84484; 85014; 85018; 85025; 86850; 86900; 86920; 86927; 88305; 93005; 94640; 96372; 99285; C9113; J0610; J1815; J3535; J7030; P9016; P9017; P9055; Q9967